=== PATIENT | female | born 1970 | race Caucasian/White ===

== ENCOUNTER 2016-09-02 20:49 | Emergency (ER) | payer MEDICAID ==
[2016-09-02 21:21] VITALS: BP 142/92
[2016-09-02] MEDS ORDERED: HYDROmorphone 1 MG/ML Syringe IM ONE (21:59)
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
== END 2016-09-02 22:32 | disposition home or self-care (01) ==
LOC: JP.ED 20:49
DX: G89.29 Other chronic pain (principal); M25.511 Pain in right shoulder; F17.210 Nicotine dependence, cigarettes, uncomplicated; E03.9 Hypothyroidism, unspecified; E78.00 Pure hypercholesterolemia, unspecified; K21.9 Gastro-esophageal reflux disease without esophagitis; M54.9 Dorsalgia, unspecified; M19.90 Unspecified osteoarthritis, unspecified site; Z79.899 Other long term (current) drug therapy; Z90.89 Acquired absence of other organs; Z88.5 Allergy status to narcotic agent; Z88.8 Allergy status to other drugs, medicaments and biological substances; Z91.048 Other nonmedicinal substance allergy status
CPT/HCPCS: 96372; 99283; J1170

== ENCOUNTER 2016-09-04 11:45 | Emergency (ER) | payer MEDICAID ==
[2016-09-04 12:11] VITALS: BP 175/113
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
[2016-09-04] MEDS ORDERED: Ketorolac 60 MG/2 ML SDV IM ONE (13:18)
--- NOTE | 2016-09-06 12:40 | CR ---
Right shoulder There is normal alignment of the glenohumeral as well as AC joints. There is joint space loss of the shoulder. There are hypertrophic changes at the AC joint. The soft tissues are unremarkable. Impression: 1. No acute findings.
== END 2016-09-04 13:37 | disposition home or self-care (01) ==
LOC: JP.ED 11:45
DX: G89.29 Other chronic pain (principal); M25.511 Pain in right shoulder; E78.00 Pure hypercholesterolemia, unspecified; K21.9 Gastro-esophageal reflux disease without esophagitis; E03.9 Hypothyroidism, unspecified; F41.9 Anxiety disorder, unspecified; G43.909 Migraine, unspecified, not intractable, without status migrainosus; F32.9 Major depressive disorder, single episode, unspecified; F17.210 Nicotine dependence, cigarettes, uncomplicated; Z88.5 Allergy status to narcotic agent; Z88.8 Allergy status to other drugs, medicaments and biological substances; Z79.899 Other long term (current) drug therapy; Z88.1 Allergy status to other antibiotic agents
CPT/HCPCS: 73030; 96372; 99284; J1885

== ENCOUNTER 2017-01-20 09:08 | Day surgery (SDC) | payer MEDICAID ==
[2017-01-20] MEDS ORDERED: Dextrose 5%-Lactated Ringers 1,000 ML IV SCH ×2 (09:45)
[2017-01-20] MEDS ORDERED: Midazolam 1 MG/ML 2 ML SDV ONE (11:20)
[2017-01-20] MEDS ORDERED: fentaNYL 100 MCG/2 ML SDV ONE (11:20)
[2017-01-20] MEDS ORDERED: Propofol 200 MG/20 ML SDV ONE ×2 (11:20→13:02)
[2017-01-20 14:37] VITALS: BP 119/72
--- NOTE | 2017-01-25 08:41 | ANES ---
DATE OF SERVICE: 01/20/2017 ADDENDUM: I did give her 400 mg total of propofol for the case. Zeus Hartman CRNA /[id number]
--- NOTE | 2017-01-28 14:48 | OR ---
DATE OF PROCEDURE: 01/20/2017 PREOPERATIVE DIAGNOSIS: Rectal bleeding. POSTOPERATIVE DIAGNOSES: 1. Rectal bleeding secondary to excoriated mixed hemorrhoids with associated rectal prolapse. 2. Limited left colonic diverticulosis. PROCEDURE: Flexible colonoscopy. ANESTHESIA: IV sedation. INDICATION FOR PROCEDURE: This is a 46-year-old female presenting with some recent rectal bleeding. The plan is to proceed with colonoscopy with biopsies and/or polypectomy as indicated. Potential risks including bleeding and perforation were discussed, and the patient wishes to proceed. DETAILS OF PROCEDURE: The patient was taken to the operating room and then placed in a left lateral decubitus position. IV sedation was administered, after which the initial digital rectal exam was unremarkable. The patient noted have some degree of rectal prolapse present as one passed the scope into the rectum, retroflexion revealed excoriated mixed hemorrhoids. These were quite irritated with likely being consistent with some bleeding recently. The scope was then eventually passed through the cecum. No additional abnormalities were noted other than some uncomplicated left colonic diverticulosis. No areas of blood or bleeding involving the anal canal. The prep was quite good with there only being a small amount of liquid and some scattered solid stool present. The scope was then withdrawn. The above findings were reconfirmed, and the procedure was then concluded. Should the patient have continued ongoing bleeding, I do not think a specific treatment will be required. She would be best treated by means of a stapled proctopexy which would correct the degree of rectal prolapse and likely allow the hemorrhoids to not be significantly inflamed following that procedure. She is instructed to contact us on p.r.n. basis if the bleeding is significant and continued. Cordell Arteaga MD /[id number]
== END 2017-01-20 14:40 | disposition home or self-care (01) ==
LOC: JP.SDS 09:08
PROVIDERS: ATTEND Surgery
DX: K57.30 Diverticulosis of large intestine without perforation or abscess without bleeding (principal); K62.3 Rectal prolapse; K64.9 Unspecified hemorrhoids
CPT/HCPCS: 45378; J2704; J7042; J2250; J3010

== ENCOUNTER 2017-06-09 16:13 | Emergency (ER) | payer MEDICAID, OTHER ==
[2017-06-09 16:26] VITALS: BP 170/98
[2017-06-09] MEDS ORDERED: Ketorolac 60 MG/2 ML SDV IM ONE (17:26)
[2017-06-09] MEDS ORDERED: Ondansetron 4 MG Tab.DIS PO ONE (17:26)
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
== END 2017-06-09 18:36 | disposition home or self-care (01) ==
LOC: JP.ED 16:13
DX: S13.9XXA Sprain of joints and ligaments of unspecified parts of neck, initial encounter (principal); F17.210 Nicotine dependence, cigarettes, uncomplicated; E78.00 Pure hypercholesterolemia, unspecified; K21.9 Gastro-esophageal reflux disease without esophagitis; E03.9 Hypothyroidism, unspecified; Z79.899 Other long term (current) drug therapy; Z88.1 Allergy status to other antibiotic agents; Z88.8 Allergy status to other drugs, medicaments and biological substances; Z88.5 Allergy status to narcotic agent; Z91.048 Other nonmedicinal substance allergy status; V89.2XXA Person injured in unspecified motor-vehicle accident, traffic, initial encounter; Y92.481 Parking lot as the place of occurrence of the external cause
CPT/HCPCS: 72125; 96372; 99284; A9270; J1885

== ENCOUNTER 2018-08-04 01:46 | Emergency (ER) | payer MEDICAID ==
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
[2018-08-04 02:13] VITALS: BP 151/78
== END 2018-08-04 02:25 | disposition home or self-care (01) ==
LOC: JP.ED 01:46
DX: N30.90 Cystitis, unspecified without hematuria (principal); Z88.8 Allergy status to other drugs, medicaments and biological substances; Z88.1 Allergy status to other antibiotic agents; Z88.5 Allergy status to narcotic agent; Z79.899 Other long term (current) drug therapy
CPT/HCPCS: 87086; 99283

== ENCOUNTER 2019-05-02 14:27 | Emergency (ER) | payer MEDICAID ==
[2019-05-02 14:51] VITALS: BP 125/76; PULSE 90
[2019-05-02] MEDS ORDERED: methylPREDNISolone Sodium Succinate 125 MG/2 ML SDV IVPUSH ONE (15:01)
[2019-05-02] MEDS ORDERED: Sodium Chloride 0.9% 10 ML Syringe FLUSH PRN (15:01)
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
[2019-05-02] MEDS ORDERED: Albuterol 0.083% 2.5 MG/3 ML Neb Soln NEB ONE (15:02)
[2019-05-02] MEDS ORDERED: Sodium Chloride 0.9% 1,000 ML IV SCH (15:15)
--- NOTE | 2019-05-02 15:36 | CRLCR ---
INDICATION: Shortness of breath. TECHNIQUE: Two views chest. FINDINGS: Heart size normal. Lungs clear without infiltrate or consolidation. Old fractures of right upper posterior ribs. Chest otherwise unremarkable. Dictated by José Miguel Burger MD @ May 02 2019 3:33PM Signed by Dr. José Miguel Burger @ May 02 2019 3:35PM
== END 2019-05-02 17:47 | disposition home or self-care (01) ==
LOC: JP.ED 14:27
DX: J98.01 Acute bronchospasm (principal); J40 Bronchitis, not specified as acute or chronic; F17.210 Nicotine dependence, cigarettes, uncomplicated; K21.9 Gastro-esophageal reflux disease without esophagitis; E78.00 Pure hypercholesterolemia, unspecified; F41.9 Anxiety disorder, unspecified; F32.9 Major depressive disorder, single episode, unspecified; Z79.899 Other long term (current) drug therapy; Z88.8 Allergy status to other drugs, medicaments and biological substances; Z88.1 Allergy status to other antibiotic agents; Z91.09 Other allergy status, other than to drugs and biological substances
CPT/HCPCS: 36415; 71046; 80053; 85025; 87804; 94640; 96374; 99285; J2930

== ENCOUNTER 2019-12-07 07:57 | Day surgery (SDC) | payer MEDICAID ==
[2019-12-07] MEDS ORDERED: Dextrose 5%-Lactated Ringers 1,000 ML IV SCH (08:10)
[2019-12-07] MEDS ORDERED: Propofol 200 MG/20 ML SDV ONE (09:05)
[2019-12-07] MEDS ORDERED: fentaNYL 100 MCG/2 ML SDV ONE (09:06)
[2019-12-07] MEDS ORDERED: Midazolam 1 MG/ML 2 ML SDV ONE (09:06)
[2019-12-07] MEDS ORDERED: Ondansetron 4 MG/2 ML SDV ONE (10:00)
[2019-12-07 11:18] VITALS: BP 128/79; PULSE 66
--- NOTE | 2019-12-13 14:51 | OR ---
DATE OF PROCEDURE: 12/07/2019 SURGEON: Cordell Arteaga MD PREOPERATIVE DIAGNOSIS: History of rectal bleeding. POSTOPERATIVE DIAGNOSIS: History of rectal bleeding, likely secondary to excoriated hemorrhoids. OPERATIVE PROCEDURE: Flexible colonoscopy. ANESTHESIA: IV sedation. INDICATIONS FOR PROCEDURE: A 49-year-old female, presenting with recent episodes of some rectal bleeding. She has not had it now for several days, but prior to that had some episodes of fairly active bright red blood occurring generally after bowel movements. The plan is to proceed with a flexible colonoscopy with biopsies and/or polypectomy as indicated, and if an obvious source of bleeding is seen, we might consider hemorrhoid banding. Potential risks of the procedure including bleeding and perforation were discussed, and the patient wishes to proceed. DETAILS OF PROCEDURE: The patient was taken to the operating room, placed in a left lateral decubitus position. IV sedation was administered, after which the initial digital rectal exam was performed was unremarkable. Colonoscope was then passed into the rectum. Retroflexion revealed some excoriated hemorrhoidal columns without active bleeding. Scope was eventually passed to the cecum. The prep was fair. There was quite a bit of liquid stool present, but probably 90% of the mucosal surfaces were well seen. There was no blood or bleeding or obvious mucosal abnormalities, apart from that. The scope was then withdrawn. The above findings were reconfirmed, and the procedure was then concluded. Plan will be to have the patient follow up with [facility] in 1 month for bariatric followup. She will be discussing possible panniculectomy at that time as well. The patient will be instructed that, if she develops significant recurrent bleeding, she should promptly get ahold of this and set up an appointment for possible in-clinic hemorrhoid banding. Cordell Arteaga MD /[id number]
== END 2019-12-07 11:21 | disposition home or self-care (01) ==
LOC: JP.SDS 07:57
PROVIDERS: ATTEND Surgery
DX: K64.8 Other hemorrhoids (principal); K62.5 Hemorrhage of anus and rectum; G47.33 Obstructive sleep apnea (adult) (pediatric)
CPT/HCPCS: 45378; J2250; J2405; J2704; J3010; J7121

== ENCOUNTER 2020-02-06 06:08 | Day surgery (SDC) | payer MEDICARE, MEDICAID ==
[2020-02-06] MEDS ORDERED: Nozin Nasal Sanitizer NASBOTH ONE (06:15)
[2020-02-06] MEDS ORDERED: Bupivacaine 0.5% 50 ML MDV ONE (06:43)
[2020-02-06] MEDS ORDERED: Lactated Ringers 1,000 ML IV SCH (07:00)
[2020-02-06] MEDS ORDERED: Propofol 200 MG/20 ML SDV ONE ×4 (07:15→09:27)
[2020-02-06] MEDS ORDERED: fentaNYL 100 MCG/2 ML SDV ONE (07:15)
[2020-02-06] MEDS ORDERED: Midazolam 1 MG/ML 2 ML SDV ONE ×2 (07:15→07:43)
[2020-02-06] MEDS ORDERED: Bupivacaine 0.5% 30 ML SDV ONE (07:16)
[2020-02-06] MEDS ORDERED: Clindamycin Phosphate 900 MG in Sodium Chloride 0.9% 100 ML IV ONE (07:30)
[2020-02-06] MEDS ORDERED: Lactated Ringers 1,000 ML ONE (09:28)
[2020-02-06] MEDS ORDERED: fentaNYL 100 MCG/2 ML SDV IVPUSH ONE (10:01)
[2020-02-06] MEDS ORDERED: HYDROmorphone 2 MG Tab PO ONE (10:33)
[2020-02-06 11:13] VITALS: BP 133/96; PULSE 56
--- NOTE | 2020-02-11 17:05 | OR ---
DATE OF PROCEDURE: 02/06/2020 SURGEON: Eloy Cobb MD PREOPERATIVE DIAGNOSIS: Recurrent right rotator cuff tear, large to massive. POSTOPERATIVE DIAGNOSES: 1. Recurrent right rotator cuff tear, large with retraction. 2. Chronic long head of biceps rupture. PROCEDURES: Arthroscopy, right shoulder with minor debridement of biceps and superior labrum, and open rotator cuff repair. ANESTHESIA: Interscalene block with sedation. INDICATIONS: Lucy is a 49-year-old female with a history of previous large right rotator cuff tear who unfortunately sustained a recurrent tear. Most recent MRI shows significant retraction and some atrophy and fatty replacement. 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 Discussed treatment options with her including attempt at revision repair, possibly with the addition of collagen matrix augmentation, capsular reconstruction, or reverse total shoulder. Given her age and activity level, it is thought that an attempt at repair is warranted in order to prevent the long-term morbidities associated with the reverse total shoulder. Risks, benefits, potential complications of options were discussed. DESCRIPTION OF PROCEDURE: After adequate anesthesia was obtained, the patient was placed in the lateral decubitus position and secured with a rose bag positioner. Right shoulder and arm were then prepped and draped in a sterile fashion. Ten pounds of traction was placed in the shoulder traction unit. A standard posterior portal was established and the glenohumeral joint was inspected. This revealed some mild scuffing of the articular surface of the glenoid and minimal changes of the humeral head. Evidence of chronic rupture of the long head of the biceps at its attachment was noted with some fraying of the superior labrum and a small nubbin of the biceps tendon still present. Subscapularis was intact. Anterior portal was established in the labrum and small portion of the remaining biceps tendon was debrided. Undersurface of the rotator cuff showed a complete tear with retraction. The scope was then removed and placed into the subacromial space. Lateral portal was established. The level of the acromioplasty was evaluated and found to be adequate. Some overgrowth of soft tissue was debrided with a combination of the shaver and the SERFAS radiofrequency ablation wand. The bursa was cleared for visualization. The edge of the rotator cuff tendon was identified at approximately the level of the mid-humeral head. A grasper was placed through the lateral portal and used to evaluate the ability to mobilize the tendon. The tendon showed more retraction posteriorly in the infraspinatus than the supraspinous, and the supraspinatus could be mobilized out to the footprint adequately. Posterior tendon was more tight. An elevator was used to free adhesions from the superior surface of the cuff as well as between the cuff and capsule and labrum intra-articularly. This allowed further mobilization and the infraspinatus could be brought out just past the edge of the articular surface. Due to the recurrent nature of the tear and retraction and the desire to get as firm a fixation as possible, a decision was made to proceed with a mini open repair. The shoulder was drained and the scope was withdrawn. The lateral portal was extended, taken down through the subcutaneous tissues and the deltoid was then divided in line with its fibers. Self-retaining retractor was placed. Deltoid was taken off the acromion for a very short distance anterior and posterior to allow better visualization. The edge of the cuff could be identified. Jermain clamp was used to grasp the edge and mobilize it out laterally and assess position. Some further releases were performed, particularly posteriorly. A FiberWire suture was placed in the anterior aspect in the supraspinatus in a locking fashion and used for mobilization and traction. The superior surface of the tuberosity was then decorticated with a rongeur. Supraspinatus and anterior portion of the tear could be mobilized out to a good area of the footprint. As noted previously, the infraspinatus was able to be mobilized out just beyond the edge of the articular surface, but could not be mobilized out to the lateral aspect of the footprint. Three Mitek Healix anchors were then placed, one anterior in the footprint of the tuberosity, one just posterior to this just off the articular surface, and the third most posterior again just barely off the articular surface. All sutures were then brought up through the tendon in a mattress fashion. With the arm slightly abducted, sutures were then tied down. An additional FiberWire suture was placed in the infraspinatus in the leading edge again in a locking fashion. The set of sutures from this locking stitch and the initially placed locking traction stitch were then secured to the tuberosity laterally utilizing a Mitek Healix knotless anchor. The 2 sets of suture for the anterior anchor were likewise secured with a knotless anchor laterally and then the final set of sutures posteriorly were also secured with a knotless anchor more posteriorly. This resulted in a double- row repair with the suture bridge as well as anchoring of the leading edge of the tear with locking sutures to the tuberosity. This resulted in a fairly robust repair, and as there was no significant gap to the tuberosity and the tendon available to the repair resulted in adequate suture purchase, a decision was made not to proceed with the collagen augmentation. The wound was irrigated. Deltoid was repaired in a [id number] fashion with 0 Vicryl. Skin was closed with 2-0 Vicryl and running 3-0 Monocryl. The additional portals were closed with 3-0 Monocryl. Steri-Strips were applied. Sterile dressing was then placed. The patient tolerated procedure very well. There were no complications. Taken from the operating room in stable condition. Eloy Cobb MD /[id number] MTDD
== END 2020-02-06 11:55 | disposition home or self-care (01) ==
LOC: JP.SDS 06:08
PROVIDERS: ATTEND Specialist
DX: M75.121 Complete rotator cuff tear or rupture of right shoulder, not specified as traumatic (principal); S46.111A Strain of muscle, fascia and tendon of long head of biceps, right arm, initial encounter; F41.9 Anxiety disorder, unspecified; F32.9 Major depressive disorder, single episode, unspecified; E11.9 Type 2 diabetes mellitus without complications; E03.9 Hypothyroidism, unspecified; E66.09 Other obesity due to excess calories; G47.33 Obstructive sleep apnea (adult) (pediatric); F17.210 Nicotine dependence, cigarettes, uncomplicated; Z79.899 Other long term (current) drug therapy; Z79.82 Long term (current) use of aspirin; Z88.5 Allergy status to narcotic agent; Z98.890 Other specified postprocedural states; Z88.8 Allergy status to other drugs, medicaments and biological substances; Z88.1 Allergy status to other antibiotic agents; Z91.048 Other nonmedicinal substance allergy status; Z68.28 Body mass index [BMI] 28.0-28.9, adult
CPT/HCPCS: 23412; 29823; 29827; 81025; A9270; C1713; J2250; J2704; J3010; J3490; J7050; J7120

== ENCOUNTER 2020-03-30 20:58 | Emergency (ER) | payer MEDICARE, MEDICAID ==
[2020-03-30 21:24] VITALS: BP 124/85; PULSE 71
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
[2020-03-30] MEDS ORDERED: Cyclobenzaprine 10 MG Tab PO ONE (21:47)
[2020-03-30] MEDS ORDERED: HYDROmorphone 0.5 MG/0.5 ML Syringe IM ONE (21:48)
== END 2020-03-30 22:31 | disposition home or self-care (01) ==
LOC: JP.ED 20:58
DX: M54.2 Cervicalgia (principal); K21.9 Gastro-esophageal reflux disease without esophagitis; E03.9 Hypothyroidism, unspecified; M19.90 Unspecified osteoarthritis, unspecified site; F41.9 Anxiety disorder, unspecified; F32.9 Major depressive disorder, single episode, unspecified; F17.210 Nicotine dependence, cigarettes, uncomplicated; E66.9 Obesity, unspecified; Z68.28 Body mass index [BMI] 28.0-28.9, adult; Z88.8 Allergy status to other drugs, medicaments and biological substances; Z91.048 Other nonmedicinal substance allergy status; Z88.1 Allergy status to other antibiotic agents; Z88.5 Allergy status to narcotic agent; Z79.899 Other long term (current) drug therapy
CPT/HCPCS: 96372; 99283; A9270; J1170

== ENCOUNTER 2020-04-16 06:50 | Day surgery (SDC) | payer MEDICARE, MEDICAID ==
[2020-04-16] MEDS ORDERED: Nozin Nasal Sanitizer NASBOTH ONE (07:15)
[2020-04-16] MEDS ORDERED: Lactated Ringers 1,000 ML IV SCH (07:30)
[2020-04-16] MEDS ORDERED: fentaNYL 100 MCG/2 ML SDV ONE (08:36)
[2020-04-16] MEDS ORDERED: Midazolam 1 MG/ML 2 ML SDV ONE ×3 (08:36→11:42)
[2020-04-16] MEDS ORDERED: Propofol 200 MG/20 ML SDV ONE ×6 (08:36→11:35)
[2020-04-16] MEDS ORDERED: Bupivacaine 0.5% 30 ML SDV ONE (10:14)
[2020-04-16] MEDS ORDERED: Lactated Ringers 1,000 ML ONE (10:14)
[2020-04-16] MEDS ORDERED: Morphine 2 MG/ML SYRINGE IVPUSH ONE (12:40)
[2020-04-16 14:40] VITALS: BP 120/88; PULSE 64
--- NOTE | 2020-04-28 14:24 | OR ---
DATE OF PROCEDURE: 04/16/2020 SURGEON: Eloy Cobb MD PREOPERATIVE DIAGNOSIS: Recurrent massive tear, right rotator cuff. POSTOPERATIVE DIAGNOSIS: Recurrent massive tear, right rotator cuff. PROCEDURE: Right rotator cuff revision repair including augmentation with ArthroFlex collagen patch. PUNCH HAND: SURENDRA Hampton ANESTHESIA: Interscalene block with sedation. INDICATIONS: Lucy is a 49-year-old female with a history of previous revision rotator cuff repair. She had been doing relatively well with the last revision, however, had a minor trauma jerking the arm at approximately 2 months out from her last surgery resulting in recurrent tear. I had a long discussion regarding another attempt at repair, use of collagen patch augmentation, tendon transfers, and capsular reconstruction up to and including reverse total shoulder arthroplasty. Given her age and the fact that this had failed traumatically within a short period of her last repair, it was felt that another attempt at open repair was worthwhile. Risks, benefits, and potential complications of all the procedures were discussed. DESCRIPTION OF PROCEDURE: After adequate anesthesia was obtained, the patient was placed in a modified beach-chair position. Right shoulder and arm were prepped and draped in a sterile fashion. Previous incision was utilized, carried down through the subcutaneous tissues, and a self-retaining retractor was placed. Deltoid was split in line with its fibers and a portion of the deltoid was taken off the acromion anteriorly and posteriorly. Self-retaining retractor was placed in the deltoid. Care was taken not to extend this down to the level of the axillary nerve. Previously placed anchors were identified with the sutures still in place, and the tendon retracted indicating failure of the sutures in the tendon. The end of the tendon could be grasped. There were no significant adhesions noted. The cuff could be mobilized converging the margins somewhat. An Orthocord suture was placed into the anterior leaflet and the posterior leaflet in a locking stitch and used for mobilization and traction. This was done with the assistance of physician special event assistant. The edge of the cuff could be mobilized out just to the medial edge of the footprint. An ArthroFlex collagen graft was utilized, and this was cut to fit over the footprint and to extend over the edge of the [place] tendon by several millimeters. Additional Healix suture anchors were placed along the medial edge of the footprint right at the margin of the articular cartilage after decorticating the footprint. All 4 limbs of each of the suture anchors were brought up through the edge of the rotator cuff. Once all sutures were placed and using the traction sutures, the tendon was mobilized out to the edge of the footprint. Collagen patch was then placed. The sutures from the suture anchor were passed through the collagen patch several millimeters from its edge. Sutures were then tied down over the patch incorporating the underlying tendon. Once this was done, the traction sutures were also passed through the graft, directing the suture in the anterior leaflet more posterior and the suture in the posterior leaflet more anterior. The edge of the ArthroFlex graft was then sewn into the tendon with 0 Vicryl suture in a running fashion along its free edge. Two additional suture anchors were placed through the graft out over its lateral edge and tied down. Two sets of the sutures from the posterior repair and 2 sets from the anterior repair were then crisscrossed and placed through knotless anchors just off the edge of the tuberosity creating a suture bridge incorporating a portion of the [place] tendon and the graft. The remaining sutures were cut, and the anterior, posterior, and lateral edges of the graft were sewn down with 0 Vicryl. Once this was done, it provided complete coverage of the footprint with moderate tension on the cuff. Wound was irrigated. Deltoid was repaired back in a [id number] fashion with 0 Vicryl. Skin was closed with 2-0 Vicryl and a running 3-0 Monocryl. Steri-Strips were applied. Sterile dressing was then placed. The arm was placed into an abduction sling. The patient tolerated the procedure very well. There were no complications. She was taken from the operating room in stable condition. Eloy Cobb MD /[id number] RAMIREZ
== END 2020-04-16 14:35 | disposition home or self-care (01) ==
LOC: JP.SDS 06:50
PROVIDERS: ATTEND Specialist
DX: M75.101 Unspecified rotator cuff tear or rupture of right shoulder, not specified as traumatic (principal); G47.33 Obstructive sleep apnea (adult) (pediatric); F17.200 Nicotine dependence, unspecified, uncomplicated
CPT/HCPCS: 23412; 36415; 80053; 85027; A9270; C1713; J2250; J2270; J2704; J3010; J3370; J3490; J7050; J7120

== ENCOUNTER 2020-09-25 12:15 | Emergency (ER) | payer MEDICARE, MEDICAID ==
[2020-09-25 13:59] VITALS: BP 162/99; PULSE 66
[2020-09-25] MEDS ORDERED: Ketorolac 60 MG/2 ML SDV IM ONE (14:27)
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
--- NOTE | 2020-09-25 15:26 | CR ---
Knee 3V Rt CLINICAL HISTORY: 3 view FINDINGS: No acute fracture or dislocation is noted. There are no osseous lesions. There is some mild periarticular patellar spurring. There is narrowing of the lateral patellofemoral joint. Impression: [id number] osteoarthritic change
== END 2020-09-25 16:00 | disposition home or self-care (01) ==
LOC: JP.ED 12:15
DX: S39.012A Strain of muscle, fascia and tendon of lower back, initial encounter (principal); S80.01XA Contusion of right knee, initial encounter; K21.9 Gastro-esophageal reflux disease without esophagitis; E03.9 Hypothyroidism, unspecified; E66.9 Obesity, unspecified; Z68.30 Body mass index [BMI] 30.0-30.9, adult; Z79.82 Long term (current) use of aspirin; Z79.899 Other long term (current) drug therapy; Z88.0 Allergy status to penicillin; Z88.8 Allergy status to other drugs, medicaments and biological substances; Z88.5 Allergy status to narcotic agent; W01.0XXA Fall on same level from slipping, tripping and stumbling without subsequent striking against object, initial encounter
CPT/HCPCS: 73562-26-RT; 73562-RT; 96372; 99283; J1885

== ENCOUNTER 2021-01-14 05:33 | Inpatient (IN) | payer MEDICARE, MEDICAID ==
[2021-01-14] MEDS ORDERED: Lactated Ringers 1,000 ML IV SCH (06:00)
[2021-01-14] MEDS ORDERED: Nozin Nasal Sanitizer NASBOTH ONE (06:32)
[2021-01-14] MEDS ORDERED: Povidone-Iodine 10% Soln 118.25 ML Bottle ONE (06:58)
[2021-01-14] MEDS ORDERED: Clindamycin Phosphate 900 MG in Sodium Chloride 0.9% 100 ML IV ONE (07:30)
[2021-01-14] MEDS ORDERED: Ondansetron 4 MG/2 ML SDV ONE (07:32)
[2021-01-14] MEDS ORDERED: Glycopyrrolate 0.2 MG/ML 5 ML MDV ONE (07:32)
[2021-01-14] MEDS ORDERED: Succinylcholine 200 MG/10 ML MDV ONE (07:32)
[2021-01-14] MEDS ORDERED: Rocuronium 50 MG/5 ML Vial ONE (07:32)
[2021-01-14] MEDS ORDERED: Dexamethasone 4 MG/ML SDV ONE (07:32)
[2021-01-14] MEDS ORDERED: Neostigmine Methylsulfate 1 MG/ML 5 ML Syringe ONE (07:32)
[2021-01-14] MEDS ORDERED: Propofol 200 MG/20 ML SDV ONE (07:32)
[2021-01-14] MEDS ORDERED: fentaNYL 250 MCG/5 ML SDV ONE ×2 (07:33→08:30)
[2021-01-14] MEDS ORDERED: Midazolam 1 MG/ML 2 ML SDV ONE (07:36)
[2021-01-14] MEDS ORDERED: Lactated Ringers 1,000 ML ONE (09:33)
[2021-01-14] MEDS ORDERED: Ondansetron 4 MG/2 ML SDV IVPUSH PRN ×2 (10:27→10:37)
[2021-01-14] MEDS ORDERED: Acetaminophen 325 MG Tab PO PRN (10:27)
[2021-01-14] MEDS ORDERED: Methocarbamol 500 MG Tab PO PRN (10:32)
[2021-01-14] MEDS ORDERED: diphenhydrAMINE 50 MG/ML SDV IVPUSH PRN (10:37)
[2021-01-14] MEDS ORDERED: Naloxone 0.4 MG/ML SDV IVPUSH PRN (10:37)
[2021-01-14] MEDS ORDERED: diphenhydrAMINE 25 MG Cap PO PRN (10:37)
[2021-01-14] MEDS ORDERED: Benzocaine/Cetylpyridinium/Menthol Lozenge MUCMEM PRN (10:45)
[2021-01-14] MEDS ORDERED: LORazepam 0.5 MG Tab PO SCH (10:45)
[2021-01-14] MEDS ORDERED: HYDROmorphone/Normal Saline 15 MG/30 ML PCA IV PRN ×2 (10:45→18:01)
[2021-01-14] MEDS ORDERED: hydrOXYzine HCl 25 MG Tab PO PRN (10:50)
[2021-01-14] MEDS ORDERED: Acetaminophen/oxyCODONE 325-10 MG Tab PO PRN (10:54)
--- NOTE | 2021-01-14 11:02 | CR ---
Shoulder 1V Rt CLINICAL HISTORY: Reverse TSA FINDINGS: Patient is status post recent placement of a reverse arthroplasty in the right shoulder. Components appear well seated.
[2021-01-14] MEDS: Sodium Chloride 0.9% 1,000 ML IV SCH ×2 (11:54→20:11)
[2021-01-14] MEDS: DULoxetine 30 MG Cap PO SCH (13:13)
[2021-01-14] MEDS: Levothyroxine 112 MCG Tab PO SCH (13:13)
[2021-01-14] MEDS: Methadone Oral Concentrate 10 MG/1 ML U/D Cup PO SCH (13:13)
[2021-01-14] MEDS: Pantoprazole 40 MG Tab.CR PO SCH (13:13)
[2021-01-14] MEDS: Docusate Sodium 100 MG Cap PO SCH ×2 (13:13→20:32)
[2021-01-14] MEDS: Cetirizine 10 MG Tab PO SCH ×2 (13:13→13:21)
[2021-01-14] MEDS: lamoTRIgine 100 MG Tab PO SCH (13:14)
[2021-01-14] MEDS: Nicotine 21 MG/24 Hr Patch TRDERM SCH (13:19)
[2021-01-14] MEDS: Clotrimazole 1% Crm 30 GM Tube TOP SCH (20:12)
[2021-01-14] MEDS: Baclofen 10 MG Tab PO SCH (20:14)
[2021-01-14] MEDS: Nozin Nasal Sanitizer NASBOTH SCH (20:32)
[2021-01-14] MEDS: Aspirin 325 MG Tab.EC PO SCH (20:34)
[2021-01-14] MEDS: Magnesium Oxide 400 MG Tab PO PRN (20:34)
[2021-01-15] MEDS: Baclofen 10 MG Tab PO SCH (01:41)
[2021-01-15] MEDS: Sodium Chloride 0.9% 1,000 ML IV SCH ×2 (04:15→12:31)
[2021-01-15] MEDS: Levothyroxine 112 MCG Tab PO SCH (08:07)
[2021-01-15] MEDS: Docusate Sodium 100 MG Cap PO SCH ×2 (08:07→21:10)
[2021-01-15] MEDS: Pantoprazole 40 MG Tab.CR PO SCH (08:07)
[2021-01-15] MEDS: Nozin Nasal Sanitizer NASBOTH SCH ×2 (08:08→21:11)
[2021-01-15] MEDS: Cetirizine 10 MG Tab PO SCH (08:08)
[2021-01-15] MEDS: DULoxetine 30 MG Cap PO SCH (08:08)
[2021-01-15] MEDS: lamoTRIgine 100 MG Tab PO SCH (08:09)
[2021-01-15] MEDS: Clotrimazole 1% Crm 30 GM Tube TOP SCH ×2 (08:10→21:11)
[2021-01-15] MEDS: Nicotine 21 MG/24 Hr Patch TRDERM SCH (08:14)
[2021-01-15] MEDS: Aspirin 325 MG Tab.EC PO SCH ×2 (08:22→21:10)
--- NOTE | 2021-01-15 08:28 | PCM.SURGPN ---
- General Info Date of Service: 01/15/21 Date of Surgery/Procedure: 01/14/21 POD#: 1 Post-Op Diagnosis: failed previous rotator cuff repairs Admission Diagnosis/Problem: Shoulder joint pain (s/p R reverse TSA ) Functional Status: Reports: Tolerating Diet, Ambulating, Urinating - Review of Systems General: Denies: Fever, Fatigue, Chills Pulmonary: Reports: Cough. Denies: Shortness of Breath, Sputum, Wheezing Cardiovascular: Denies: Chest Pain, Palpitations Gastrointestinal: Denies: Nausea, Vomiting Musculoskeletal: Reports: Neck Pain, Shoulder Pain (right shoulder ), Arm Pain (right ) Skin: Reports: No Symptoms Neurological: Reports: No Symptoms - Patient Data Vitals - Most Recent: Last Vital Signs Temp 97.1 F 01/15/21 06:47 Pulse 57 L 01/15/21 06:47 Resp 16 01/15/21 06:47 BP 162/93 H 01/15/21 06:47 Pulse Ox 94 L 01/15/21 06:47 Weight - Most Recent: 165 lb 12.8 oz I&O - Last 24 Hours: Intake & Output 01/14/21 01/15/21 01/15/21 22:59 06:59 14:59 Output Total 920 1160 Balance -920 -1160 Lab Results Last 24 Hrs: Laboratory Results - last 24 hr 01/15/21 Range/Units 05:20 WBC 7.6 (4.5-11.0) K/uL RBC 3.76 (3.30-5.50) M/uL Hgb 12.6 (12.0-15.0) g/dL Hct 39.5 (36.0-48.0) % MCV 105 H (80-98) fL MCH 34 H (27-31) pg MCHC 32 (32-36) % Plt Count 159 (150-400) K/uL Med Orders - Current: Current Medications Acetaminophen (Acetaminophen 325 Mg Tab) 650 mg PO Q4H PRN PRN Reason: Pain/Fever Aspirin (Aspirin 325 Mg Tab.Ec) 325 mg PO BID [facility] Last Admin: 01/15/21 08:22 Dose: 325 mg Documented by: Baclofen (Baclofen 10 Mg Tab) 5 mg PO BEDTIME [facility] Last Admin: 01/15/21 01:41 Dose: 5 mg Documented by: Bandage/Support Products (Nozin Nasal Machine Setter And Repairer) 1 applic NASBOTH BID [facility] Stop: 01/20/21 21:01 Last Admin: 01/15/21 08:08 Dose: 1 applic Documented by: Benzocaine/Menthol (Benzocaine/Cetylpyridinium/Menthol Lozenge) 1 lozenge MUCMEM ASDIRECTED PRN PRN Reason: SORE THROAT Cetirizine HCl (Cetirizine 10 Mg Tab) 10 mg PO DAILY [facility] Last Admin: 01/15/21 08:08 Dose: Not Given Documented by: Clotrimazole (Clotrimazole 1% Crm 30 Gm Tube) 0 gm TOP BID [facility] Last Admin: 01/15/21 08:10 Dose: Not Given Documented by: Diphenhydramine HCl (Diphenhydramine 50 Mg/Ml Sdv) 25 mg IVPUSH Q6H PRN PRN Reason: Itching Diphenhydramine HCl (Diphenhydramine 25 Mg Cap) 25 mg PO Q6H PRN PRN Reason: Itching Docusate Sodium (Docusate Sodium 100 Mg Cap) 100 mg PO BID [facility] Last Admin: 01/15/21 08:07 Dose: 100 mg Documented by: Duloxetine HCl (Duloxetine 30 Mg Cap) 120 mg PO DAILY [facility] Last Admin: 01/15/21 08:08 Dose: 120 mg Documented by: Hydromorphone HCl (Hydromorphone/Normal Saline 15 Mg/30 Ml Base Loader) 0 mg IV ASDIRECTED PRN; Protocol PRN Reason: Pain Hydroxyzine HCl (Hydroxyzine Hcl 25 Mg Tab) 25 mg PO Q6H PRN PRN Reason: anxiety/itching Last Admin: 01/15/21 01:42 Dose: 25 mg Documented by: Sodium Chloride (Normal Saline) 1,000 mls @ 125 mls/hr IV ASDIRECTED [facility] Last Admin: 01/15/21 04:15 Dose: 125 mls/hr Documented by: Clindamycin Phosphate 600 mg/ (Sodium Chloride) 54 mls @ 150 mls/hr IV Q8H [facility] Stop: 01/15/21 09:22 Last Admin: 01/15/21 08:18 Dose: 150 mls/hr Documented by: Lamotrigine (Lamotrigine 100 Mg Tab) 200 mg PO DAILY [facility] Last Admin: 01/15/21 08:09 Dose: 200 mg Documented by: Levothyroxine Sodium (Levothyroxine 112 Mcg Tab) 112 mcg PO ACBREAKFAST [facility] Last Admin: 01/15/21 08:07 Dose: 112 mcg Documented by: Magnesium Oxide (Magnesium Oxide 400 Mg Tab) 200 mg PO BEDTIME PRN PRN Reason: Sleep Last Admin: 01/14/21 20:34 Dose: 200 mg Documented by: Methadone HCl (Methadone Oral Concentrate 10 Mg/1 Ml U/D Cup) 161 mg PO DAILY [facility] Last Admin: 01/14/21 13:13 Dose: 161 mg Documented by: Methocarbamol (Methocarbamol 500 Mg Tab) 500 mg PO TID PRN PRN Reason: Spasms Naloxone HCl (Naloxone 0.4 Mg/Ml Sdv) 0.04 mg IVPUSH Q3M PRN PRN Reason: Respiratory Depression Nicotine (Nicotine 21 Mg/24 Hr Patch) 21 mg TRDERM DAILY [facility] Last Admin: 01/15/21 08:14 Dose: 21 mg Documented by: Ondansetron HCl (Ondansetron 4 Mg/2 Ml Sdv) 4 mg IVPUSH Q4H PRN PRN Reason: Nausea/Vomiting Oxycodone/Acetaminophen (Acetaminophen/Oxycodone 325-10 Mg Tab) 1 tab PO Q8H PRN PRN Reason: Pain Pantoprazole Sodium (Pantoprazole 40 Mg Tab.Cr) 40 mg PO ACBREAKFAST [facility] Last Admin: 01/15/21 08:07 Dose: 40 mg Documented by: Discontinued Medications Bandage/Support Products (Nozin Nasal Machine Setter And Repairer) 1 applic NASBOTH ONETIME ONE Stop: 01/14/21 06:33 Last Admin: 01/14/21 06:40 Dose: 1 applic Documented by: Dexamethasone (Dexamethasone 4 Mg/Ml Sdv) Confirm Administered Dose 4 mg .ROUTE .STK-MED ONE Stop: 01/14/21 07:33 Fentanyl (Fentanyl 250 Mcg/5 Ml Sdv) Confirm Administered Dose 250 mcg .ROUTE .STK-MED ONE Stop: 01/14/21 07:34 Fentanyl (Fentanyl 250 Mcg/5 Ml Sdv) Confirm Administered Dose 250 mcg .ROUTE .S TK-MED ONE Stop: 01/14/21 08:31 Glycopyrrolate (Glycopyrrolate 0.2 Mg/Ml 5 Ml Mdv) Confirm Administered Dose 1 mg .ROUTE .STK-MED ONE Stop: 01/14/21 07:33 Hydromorphone HCl (Hydromorphone/Normal Saline 15 Mg/30 Ml Base Loader) 0 mg IV ASDIRECTED PRN; Protocol PRN Reason: Pain Last Admin: 01/14/21 11:55 Dose: 15 mg Documented by: Clindamycin Phosphate 900 mg/ (Sodium Chloride) 106 mls @ 200 mls/hr IV ONETIME ONE Stop: 01/14/21 08:01 Last Admin: 01/14/21 07:46 Dose: 200 mls/hr Documented by: Lactated Ringer's (Ringers, Lactated) 1,000 mls @ 75 mls/hr IV ASDIRECTED [facility] Last Admin: 01/14/21 06:08 Dose: 75 mls/hr Documented by: Lactated Ringer's (Ringers, Lactated) Confirm Administered Dose 1,000 mls @ as directed .ROUTE .STK-MED ONE Stop: 01/14/21 09:34 Midazolam HCl (Midazolam 1 Mg/Ml 2 Ml Sdv) Confirm Administered Dose 2 mg .ROUTE .STK-MED ONE Stop: 01/14/21 07:37 Neostigmine Methylsulfate (Neostigmine Methylsulfate 1 Mg/Ml 5 Ml Syringe) Confirm Administered Dose 5 mg .ROUTE .STK-MED ONE Stop: 01/14/21 07:33 Ondansetron HCl (Ondansetron 4 Mg/2 Ml Sdv) Confirm Administered Dose 4 mg .ROUTE .STK-MED ONE Stop: 01/14/21 07:33 Povidone Iodine (Povidone-Iodine 10% Soln 118.25 Ml Bottle) Confirm Administered Dose 1 ml .ROUTE .STK-MED ONE Stop: 01/14/21 06:59 Propofol (Propofol 200 Mg/20 Ml Sdv) Confirm Administered Dose 200 mg .ROUTE .STK-MED ONE Stop: 01/14/21 07:33 Rocuronium [place] (Rocuronium 50 Mg/5 Ml Vial) Confirm Administered Dose 50 mg .ROUTE .STK-MED ONE Stop: 01/14/21 07:33 Succinylcholine Chloride (Succinylcholine 200 Mg/10 Ml Mdv) Confirm Administered Dose 200 mg .ROUTE .STK-MED ONE Stop: 01/14/21 07:33 - Exam Wound/Incisions: Dressing Dry and Intact, Drainage (JOSIAS drain, total of 270 mL in past 24 hours. No drainage on dressing. ) General: Alert, Oriented, Mild Distress Extremities: Normal Capillary Refill, Arm Pain (right ), Limited Range of Motion (due to pain at right shoulder. Appropriate motion of elbow, wrist, and digits ) Skin: Dry, Intact Neurological: No New Focal Deficit Psy/Mental Status: Alert, Normal Affect Sepsis Event Note - Evaluation Sepsis Screening Result: No Definite Risk - Focused Exam Vital Signs: Vital Signs Temp Pulse Resp BP Pulse Ox 01/15/21 06:47 97.1 F 57 L 16 162/93 H 94 L 01/15/21 04:22 96.8 F L 66 16 150/87 H 98 01/15/21 01:45 62 18 120/76 98 01/15/21 00:56 94 L 01/14/21 22:36 97.7 F 88 16 115/69 95 - Problem List & Annotations (1) Status post reverse total arthroplasty of right shoulder SNOMED Code(s): 39998281066309056, 93941072973074339 Code(s): Z96.611 - PRESENCE OF RIGHT ARTIFICIAL SHOULDER JOINT Status: Acute Current Visit: Yes - Problem List Review Problem List Initiated/Reviewed/Updated: Yes - My Orders Last 24 Hours: Active Orders 24 hr Category Date Time Status Patient Status [ADT] Routine ADT 01/14/21 10:28 Active Ambulate [RC] QID Care 01/14/21 10:28 Active Antiembolic Devices [RC] .Routine Care 01/14/21 10:28 Active Communication Order [RC] Per Unit Routine Care 01/14/21 10:39 Active Head of Bed Elevation [RC] ASDIRECTED Care 01/14/21 10:28 Active Intake and Output [RC] QSHIFT Care 01/14/21 10:28 Active May Shower [RC] ASDIRECTED Care 01/14/21 10:28 Active Neurovascular Check [RC] Q4H Care 01/14/21 10:28 Active Notify Provider Vital Signs [RC] ASDIRECTED Care 01/14/21 10:27 Active Oxygen Therapy [RC] PRN Care 01/14/21 10:28 Active GAS METER INSTALLER Record [RC] Q4H Care 01/14/21 10:39 Active Pneumonia Education [RC] UPON Care 01/14/21 10:28 Active RT Incentive Spirometry [RC] Q1HWA Care 01/14/21 10:28 Active Up to Chair [RC] QID Care 01/14/21 10:28 Active VTE/DVT Education [RC] Click to Edit Care 01/14/21 10:28 Active Vital Signs [RC] PER UNIT ROUTINE Care 01/14/21 10:39 Active Wound Care [RC] Q12H Care 01/14/21 10:28 Active Consult to Case Management/Studio Operations Manager [CONS] Cons 01/14/21 10:28 Active Routine OT Evaluation and Treatment [CONS] Routine Cons 01/14/21 10:27 Active PT Evaluation and Treatment [CONS] Routine Cons 01/14/21 10:28 Active Regular Diet [DIET] Diet 01/14/21 Lunch Active Acetaminophen [TylenoL] Med 01/14/21 10:27 Active 650 mg PO Q4H PRN Acetaminophen/oxyCODONE [Percocet 325-10 MG] Med 01/14/21 10:54 Active 1 tab PO Q8H PRN Aspirin [Ecotrin] Med 01/14/21 21:00 Active 325 mg PO BID Baclofen [Lioresal] Med 01/14/21 21:00 Active 5 mg PO BEDTIME Benzocaine/Cetylpyrd/Menthol [Cepacol Sore Throat] Med 01/14/21 10:45 Active 1 lozenge MUCMEM ASDIRECTED PRN Cetirizine [ZyrTEC] Med 01/14/21 13:00 Active 10 mg PO DAILY Clindamycin Phosphate [Cleocin] 600 mg Med 01/14/21 17:00 Active Sodium Chloride 0.9% [Normal Saline] 50 ml IV Q8H Clotrimazole [Lotrimin AF 1% Crm] Med 01/14/21 21:00 Active 0 gm TOP BID DULoxetine [Cymbalta] Med 01/14/21 13:00 Active 120 mg PO DAILY Docusate Sodium [Colace] Med 01/14/21 13:00 Active 100 mg PO BID HYDROmorphone/Normal Saline [Dilaudid GAS METER INSTALLER 15 MG in NS Med 01/14/21 18:01 Act jayashree 30 ML] 0 mg IV ASDIRECTED PRN Levothyroxine Med 01/14/21 13:00 Active 112 mcg PO ACBREAKFAST Magnesium Oxide Med 01/14/21 12:25 Active 200 mg PO BEDTIME PRN Methadone [methadone Intensol U/D] Med 01/14/21 13:00 Active 161 mg PO DAILY Naloxone [Narcan] Med 01/14/21 10:37 Active 0.04 mg IVPUSH Q3M PRN Nicotine [Habitrol] Med 01/14/21 13:00 Active 21 mg TRDERM DAILY Nozin [ Nasal Machine Setter And Repairer] Med 01/14/21 21:00 Active 1 applic NASBOTH BID Ondansetron [Zofran] Med 01/14/21 10:27 Active 4 mg IVPUSH Q4H PRN Pantoprazole [ProTONIX] Med 01/14/21 13:00 Active 40 mg PO ACBREAKFAST Sodium Chloride 0.9% [Normal Saline] 1,000 ml Med 01/14/21 10:30 Active IV ASDIRECTED diphenhydrAMINE [Benadryl] Med 01/14/21 10:37 Active 25 mg IVPUSH Q6H PRN diphenhydrAMINE [Benadryl] Med 01/14/21 10:37 Active 25 mg PO Q6H PRN hydrOXYzine HCL [Atarax] Med 01/14/21 10:50 Active 25 mg PO Q6H PRN lamoTRIgine Med 01/14/21 13:00 Active 200 mg PO DAILY methocarbamoL [Robaxin] Med 01/14/21 10:32 Active 500 mg PO TID PRN DVT/VTE Prophylaxis Reflex [OM.PC] Routine Oth 01/14/21 10:28 Ordered Ice Therapy [OM.PC] Per Unit Routine Oth 01/14/21 10:28 Ordered Medication Continuation Instructions [OM.PC] Per Unit Oth 01/14/21 10:28 Ordered Routine Oral Care [OM.PC] Routine Oth 01/14/21 10:28 Ordered Pulse Oximetry Continuous Monitoring [OM.PC] Routine Oth 01/14/21 10:39 Ordered Sequential Compression Device [OM.PC] Routine Oth 01/14/21 10:28 Ordered Resuscitation Status Routine Resus Stat 01/14/21 10:27 Ordered Medication Orders Acetaminophen (Acetaminophen 325 Mg Tab) 650 mg PO Q4H PRN PRN Reason: Pain/Fever Aspirin (Aspirin 325 Mg Tab.Ec) 325 mg PO BID [facility] Last Admin: 01/15/21 08:22 Dose: 325 mg Documented by: Admin: 01/14/21 20:34 Dose: Not Given Documented by: BRENDA Baclofen (Baclofen 10 Mg Tab) 5 mg PO BEDTIME [facility] Last Admin: 01/15/21 01:41 Dose: 5 mg Documented by: Admin: 01/14/21 20:14 Dose: Not Given Documented by: BRENDA Bandage/Support Products (Nozin Nasal Machine Setter And Repairer) 1 applic NASBOTH BID [facility] Stop: 01/20/21 21:01 Last Admin: 01/15/21 08:08 Dose: 1 applic Documented by: Admin: 01/14/21 20:32 Dose: 1 applic Documented by: BRENDA Benzocaine/Menthol (Benzocaine/Cetylpyridinium/Menthol Lozenge) 1 lozenge MUCMEM ASDIRECTED PRN PRN Reason: SORE THROAT Cetirizine HCl (Cetirizine 10 Mg Tab) 10 mg PO DAILY [facility] Last Admin: 01/15/21 08:08 Dose: Not Given Documented by: Admin: 01/14/21 13:21 Dose: Not Given Documented by: BENITO Clotrimazole (Clotrimazole 1% Crm 30 Gm Tube) 0 gm TOP BID [facility] Last Admin: 01/15/21 08:10 Dose: Not Given Documented by: Admin: 01/14/21 20:12 Dose: Not Given Documented by: BRENDA Diphenhydramine HCl (Diphenhydramine 50 Mg/Ml Sdv) 25 mg IVPUSH Q6H PRN PRN Reason: Itching Diphenhydramine HCl (Diphenhydramine 25 Mg Cap) 25 mg PO Q6H PRN PRN Reason: Itching Docusate Sodium (Docusate Sodium 100 Mg Cap) 100 mg PO BID [facility] Last Admin: 01/15/21 08:07 Dose: 100 mg Documented by: Admin: 01/14/21 20:32 Dose: 100 mg Documented by: Admin: 01/14/21 13:13 Dose: 100 mg Documented by: BENITO Duloxetine HCl (Duloxetine 30 Mg Cap) 120 mg PO DAILY [facility] Last Admin: 01/15/21 08:08 Dose: 120 mg Documented by: Admin: 01/14/21 13:13 Dose: 120 mg Documented by: BENITO Hydromorphone HCl (Hydromorphone/Normal Saline 15 Mg/30 Ml Base Loader) 0 mg IV ASDIRECTED PRN; Protocol PRN Reason: Pain Hydroxyzine HCl (Hydroxyzine Hcl 25 Mg Tab) 25 mg PO Q6H PRN PRN Reason: anxiety/itching Last Admin: 01/15/21 01:42 Dose: 25 mg Documented by: BRENDA Sodium Chloride (Normal Saline) 1,000 mls @ 125 mls/hr IV ASDIRECTED [facility] Last Admin: 01/15/21 04:15 Dose: 125 mls/hr Documented by: Infusion: 01/15/21 04:11 Dose: 125 mls/hr Documented by: Admin: 01/14/21 20:11 Dose: 125 mls/hr Documented by: Infusion: 01/14/21 19:54 Dose: 125 mls/hr Documented by: Admin: 01/14/21 11:54 Dose: 125 mls/hr Documented by: BENITO Clindamycin Phosphate 600 mg/ (Sodium Chloride) 54 mls @ 150 mls/hr IV Q8H [facility] Stop: 01/15/21 09:22 Last Admin: 01/15/21 08:18 Dose: 150 mls/hr Documented by: Admin: 01/15/21 01:42 Dose: 150 mls/hr Documented by: Admin: 01/14/21 16:41 Dose: 150 mls/hr Documented by: BENITO Lamotrigine (Lamotrigine 100 Mg Tab) 200 mg PO DAILY [facility] Last Admin: 01/15/21 08:09 Dose: 200 mg Documented by: Admin: 01/14/21 13:14 Dose: 200 mg Documented by: BENITO Levothyroxine Sodium (Levothyroxine 112 Mcg Tab) 112 mcg PO [facility]AKFAST [facility] Last Admin: 01/15/21 08:07 Dose: 112 mcg Documented by: Admin: 01/14/21 13:13 Dose: 112 mcg Documented by: BENITO Magnesium Oxide (Magnesium Oxide 400 Mg Tab) 200 mg PO BEDTIME PRN PRN Reason: Sleep Last Admin: 01/14/21 20:34 Dose: 200 mg Documented by: BRENDA Methadone HCl (Methadone Oral Concentrate 10 Mg/1 Ml U/D Cup) 161 mg PO DAILY [facility] Last Admin: 01/14/21 13:13 Dose: 161 mg Documented by: BENITO Methocarbamol (Methocarbamol 500 Mg Tab) 500 mg PO TID PRN PRN Reason: Spasms Naloxone HCl (Naloxone 0.4 Mg/Ml Sdv) 0.04 mg IVPUSH Q3M PRN PRN Reason: Respiratory Depression Nicotine (Nicotine 21 Mg/24 Hr Patch) 21 mg TRDERM DAILY [facility] Last Admin: 01/15/21 08:14 Dose: 21 mg Documented by: Admin: 01/14/21 13:19 Dose: Not Given Documented by: BENITO Ondansetron HCl (Ondansetron 4 Mg/2 Ml Sdv) 4 mg IVPUSH Q4H PRN PRN Reason: Nausea/Vomiting Oxycodone/Acetaminophen (Acetaminophen/Oxycodone 325-10 Mg Tab) 1 tab PO Q8H PRN PRN Reason: Pain Pantoprazole Sodium (Pantoprazole 40 Mg Tab.Cr) 40 mg PO [facility]AKFAST [facility] Last Admin: 01/15/21 08:07 Dose: 40 mg Documented by: Admin: 01/14/21 13:13 Dose: 40 mg Documented by: BENITO - Assessment Assessment (Free Text/Narrative):: Patient is a 50-year-old female, status post right reverse total shoulder arthroplasty, postop day #1. Patient tolerated surgery well with no complications. No acute events overnight. POD#1 HgB declined to 12.6. Patient remains hemodynamically stable with vitals in acceptable limits. Diastolic pressures have been slightly elevated in the 90s, likely attributed to postoperative pain. JOSIAS drain output was 250 mL yesterday evening. 20 mL output overnight for a total of 270 mL since surgery. Patient is not opioid-rossy and has a high pain tolerance. GAS METER INSTALLER Dilaudid pump was utilized overnight. Patient reports block wore off around 2 AM and has had tremendous pain since then. Complains of a constant throbbing in shoulder and muscle cramps around shoulder. Reports less than 3 hours of sleep last night from the pain. Patient worked with physical therapy yesterday on [facility] to elbow, wrist, and digits. Will continue with therapy services today and progress motion of shoulder as tolerated. Patient requires inpatient status at this time to obtain adequate pain control and wean to oral medications prior to discharge. Patient also requiring further therapy services to progress functional abilities of right upper extremity. Exam: Right radial pulse, 3+. Capillary refill <3 seconds. Sensation intact. Active and appropriate motion at elbow and wrist. Crm Marketing Analyst strength of right slightly diminished. Patient unagreeable to shoulder motion this morning due to pain. Right JOSIAS drain in place. Dressing on right shoulder is dry and intact. Surrounding skin without erythema nor ecchymosis. Unable to assess temperature as cool packs are in place on right shoulder. Plan: * Patient to continue with PT and OT services daily while in the hospital. * Patient to continue with Dilaudid GAS METER INSTALLER this morning through AM PT session; goal to transition to oral medications thereafter. * Baclofen increased from 5mg daily to 5mg BID PRN for muscle spasms. * 325 mg Aspirin BID for DVT/VTE prophylaxis. * Anticipate JOSIAS drain removal if output continues to decline. Anticipate dressing change by orthopedic provider on POD#2. * Anticipate discharge to home when patient is medically stable, pain controlled with PO medications, and functional abilities with RUE improve. May benefit from home health services at time of discharge.
[2021-01-15] MEDS ORDERED: Baclofen 10 MG Tab PO PRN (08:51)
[2021-01-15] MEDS: Methadone Oral Concentrate 10 MG/1 ML U/D Cup PO SCH (08:53)
[2021-01-15] MEDS: Ketorolac 30 MG/ML SDV IVPUSH SCH ×2 (13:35→21:10)
[2021-01-15] MEDS: HYDROmorphone 2 MG Tab PO PRN ×3 (13:35→21:51)
[2021-01-15] MEDS: HYDROmorphone 1 MG/ML Syringe IVPUSH PRN ×2 (15:29→23:26)
[2021-01-15] MEDS ORDERED: Polyethylene Glycol 3350 Powder 17 GM Packet PO PRN (17:06)
[2021-01-15] MEDS ORDERED: Polyethylene Glycol 3350 Powder 17 GM Packet PO ONE (17:55)
[2021-01-15] MEDS ORDERED: Bisacodyl 10 MG Supp RECTAL ONE (22:00)
[2021-01-15] MEDS: Magnesium Oxide 400 MG Tab PO PRN (22:01)
[2021-01-16] MEDS: HYDROmorphone 2 MG Tab PO PRN ×3 (02:37→12:23)
[2021-01-16] MEDS: Ketorolac 30 MG/ML SDV IVPUSH SCH (04:43)
[2021-01-16 07:31] VITALS: BP 134/90; PULSE 66
[2021-01-16] MEDS: Pantoprazole 40 MG Tab.CR PO SCH (07:42)
[2021-01-16] MEDS: Levothyroxine 112 MCG Tab PO SCH (07:42)
[2021-01-16] MEDS ORDERED: Glycerin 2.1 GM Supp RECTAL ONE (08:00)
--- NOTE | 2021-01-16 08:04 | PCM.DCSUM1 ---
Discharge Summary - Hospital Course HPI Initial Comments: Patient is a 50 y/o female with history of multiple failed right rotator cuffs. Patient suffered from weakness of the right upper extremity, impacting ability to complete ADLs and quality of life. Patient elected to undergo a right reverse total shoulder arthroplasty. Surgery went well with no complications. No acute events during hospitalization. Hospitalization prolonged to allow for adequate pain control with PO medications prior to discharge home. Diagnosis: Stroke: No Modified [place] Scale: No Symptoms at All Modified Mini Scale Score: 0 - Discharge Data Discharge Date: 01/16/21 Discharge Disposition: Home, W Home Health Agency 06 Condition: Good - Referral to Home Health Date of Face to Face Encounter: 01/16/21 Reason for Homebound Status: motivated to go home, pain controlled with PO medications, is medically stable at this time. Will have support of HEAVY LINE TECHNICIAN at home. Primary Care Physician: SURENDRA Martinez Skilled Need: physical therapy, occupational therapy - Discharge Diagnosis/Problem(s) (1) Status post reverse total arthroplasty of right shoulder SNOMED Code(s): [id number], [id number] ICD Code: Z96.611 - PRESENCE OF RIGHT ARTIFICIAL SHOULDER JOINT Status: Acute Current Visit: Yes - Patient Summary/Data Operative Procedure(s) Performed: right reverse total shoulder arthroplasty Consults: Consultations 01/14/21 10:27 OT Evaluation and Treatment [CONS] Routine Please Evaluate and Treat. OT Reason for Consult: ADL's This query below is only for informational purposes and is not editable. 01/14/21 10:28 Consult to Case Management/Well Head Pumper [CONS] Routine Comment: Physician Instructions: Service(s) to be Consulted: Case Management Reason for Consult: Plan for Discharge Special Instructions: anticipate d/c to home, home health services PT Evaluation and Treatment [CONS] Routine Please Evaluate and Treat. PT Reason for Consult: Post op Ortho Surgery Special Instructions: s/p R reverse TSA; okay to initiate ROM with shoulder as tolerated. Continue with AROM to elbow and wrist. This query below is only for informational purposes and is not editable. Hospital Course: Patient is a 50 y/o female, status post right reverse total shoulder arthroplasty, DOS: 01/14/21. Patient tolerated surgery well with no complications. Patient had no acute events during hospitalization. Remained hemodynamically stable throughout stay. Did have intermittent hypertension, likely attributed to pain. Blood pressures have improved over POD#2. Patient POD#1 HgB declined to 12.6. Patient has been asymptomatic with this. Denied lightheadedness, dizziness, vision changes, nor fatigue. Also denied subjective fevers, chills, shortness of breath, dyspnea on exertion, nor chest pain. Does endorse cough, not productive. JOSIAS Drain did have 250 mL output the afternoon and evening of surgery. POD#1 output of 40 mL. JOSIAS drain pulled on POD#2 as output declined to <20 mL. Dressing changed on POD#2 with JOSIAS drain removal. Patient is not opioid naive and does have a high pain tolerance, so a Dilaudid HEAVY LINE TECHNICIAN pump was utilized following surgery. Patient transitioned to oral Dilaudid with IV available for breakthrough pain on POD#1. By POD#2, pain well controlled with just PO medications. Denied nausea or emesis. Tolerated regular diet well. Did have constipation throughout stay; utilized scheduled stool softeners, and prn miralax and prn suppositories. By POD#2, had a bowel movement. Patient participated in PT and OT services daily. Demonstrates appropriate motion of elbow and wrist. Guarded with shoulder motions from pain, but tolerating passive flexion to about 45 degrees. Able to complete ADLs with assistance. By POD#2, patients pain was well controlled with oral medications, she was medically stable, and expressed readiness to go home. Does have a HEAVY LINE TECHNICIAN at home to assist around the house. Will complete home health PT for shoulder. Exam: Right radial pulse, 3+. Capillary refill <3 seconds. Sensation to right upper extremity intact. Demonstrates active and appropriate motion of elbow, wrist, and digits. Metals Analyst strength of right slightly diminished. Guarded with shoulder motions from pain, but is able to passively flex to 45 degrees. Incision is healing well, steristrips intact above with dried drainage. No surrounding erythema, nor active drainage. Recent cool pack on shoulder so unable to accurately assess temperature. Ecchymosis present on anterior shoulder extending into breast. Modest diffuse swelling of right shoulder into right elbow. No significant swelling of forearm, wrist, nor digits. - Patient Instructions Diet: Usual Diet as Tolerated Activity: Apply Ice, No Strenuous Activities (no lifting with right arm ), Rest and Relax Today Driving: Do Not Drive (while on opioid pain medications ) Showering/Bathing: Shower in AM Wound/Incision Care: Keep Operative Site/Wound Site Clean and Dry, Change Dressing Daily Notify Provider of: Fever, Increased Pain, Swelling and Redness, Drainage - Discharge Plan *PRESCRIPTION DRUG MONITORING PROGRAM REVIEWED*: Yes *COPY OF PRESCRIPTION DRUG MONITORING REPORT IN PATIENT DORI: Not Applicable Prescriptions/Med Rec: Aspirin 325 mg PO BID #60 tablet HYDROmorphone [Dilaudid] 2 mg PO Q6HR PRN #28 tab PRN Reason: Pain Home Medications: Home Meds DULoxetine [Cymbalta] 120 mg PO DAILY 02/07/14 [History] lamoTRIgine [Lamictal] 200 mg PO DAILY 02/07/14 [History] Acetaminophen [Tylenol Extra Strength] 500 mg PO Q6H PRN 06/05/14 [History] Methadone HCl [Methadone] 161 mg PO DAILY 06/05/14 [History] Vitamin B Complex [B Complex] 1 tab PO DAILY 07/11/14 [History] Omeprazole Magnesium 40 mg PO DAILY 08/01/15 [History] Papaya [Papaya Enzyme] 1 tab PO ASDIRECTED PRN 08/01/15 [History] Cyanocobalamin (Vitamin B12) [Vitamin B12] 1,000 mcg IJ .QMONTH 10/22/15 [History] Magnesium 250 mg PO BEDTIME PRN 11/28/15 [History] hydrOXYzine Pamoate [Vistaril] 25 mg PO Q6H PRN 09/07/16 [History] Calcium Citrate/Magnesium/D3 [Calcium Citrate Chewable Wafer] 500 mg PO BID 11/24/18 [History] Aspirin/Acetaminophen/Caffeine [Migraine Relief Caplet] 1 tab PO Q6H PRN 05/28/20 [History] Biotin 5,000 mcg PO DAILY 05/28/20 [History] Clobetasol Propionate [Temovate 0.05% Oint] 1 applic TOP BID 05/28/20 [History] Clotrimazole [Clotrimazole 1%] 1 applic TOP BID 05/28/20 [History] Doxepin HCl [Zonalon] 1 applic TOP BEDTIME 05/28/20 [History] Halobetasol Propionate [Ultravate] 1 applic TOP BID 05/28/20 [History] LORazepam [Lorazepam] 0.5 mg PO ASDIRECTED PRN 05/28/20 [History] Mupirocin Oint [Bactroban Oint] 1 applic TOP TID PRN 05/28/20 [History] Nicotine [Nicoderm CQ] 21 mg TOP DAILY 05/28/20 [History] Pediatric Multivitamin No.101 [Children's Multivitamin] 1 tab PO DAILY 05/28/20 [History] Thiamine HCl 100 mg PO DAILY 05/28/20 [History] Vitamin B Complex/Folic Acid [Vitamin B-100 Complex] 100 mg PO DAILY 05/28/20 [History] methocarbamoL [Methocarbamol] 500 mg PO TID PRN 05/28/20 [History] metroNIDAZOLE [Metrogel-Vaginal] 1 applic VAG DAILY 05/28/20 [History] ondansetron HCL [Zofran] 4 mg PO Q8H PRN 05/28/20 [History] Zinc 30 mg PO DAILY 08/14/20 [History] Levothyroxine 112 mcg PO ACBREAKFAST 09/25/20 [History] Baclofen 5 mg PO BEDTIME 01/09/21 [History] Celecoxib [CeleBREX] 200 mg PO BID 01/09/21 [History] Cetirizine HCl 10 mg PO DAILY 01/09/21 [History] Diclofenac Sodium [Voltaren 1% Gel] 1 applic TOP QID 01/09/21 [History] Ergocalciferol (Vitamin D2) [Vitamin D2] 50,000 unit PO .MONTUEWEDTHURFRI 01/09/21 [History] Ergocalciferol (Vitamin D2) [Vitamin D2] 100,000 unit PO .SATSUN 01/09/21 [History] Ferrous Fumarate/Vitamin C [Vitron-C] 1 tab PO DAILY 01/09/21 [History] Tolnaftate [Antifungal Cream] 1 applic TOP BID 01/09/21 [History] Triamcinolone Acetonide [Triamcinolone Acetonide 0.1% Crm] 1 applic TOP BID 01/09/21 [History] oxyCODONE HCl/Acetaminophen [Endocet 10-325 mg Tablet] 1 each PO Q8H PRN 01/14/21 [History] Aspirin 325 mg PO BID #60 tablet 01/16/21 [Rx] HYDROmorphone [Dilaudid] 2 mg PO Q6HR PRN #28 tab 01/16/21 [Rx] Oxygen Therapy Mode: Room Air Patient Handouts: Reverse Total Shoulder Replacement, Care After, Preventing Problems After Surgery, How to Prevent Constipation After Surgery Referrals: Eloy Cobb MD [Physician] - 01/29/21 1:30 pm (Please arrive 15 minutes early to register for yoour appointment.) - Discharge Summary/Plan Comment DC Time >30 min.: Yes (drain removal, reviewing limitations with RUE, discussing smoking cessation) Total # of Minutes for Discharge Time: 30 Discharge Summary/Plan Comment: * Prescription sent to pharmacy for pain: 2 mg Dilaudid PO q6 hrs prn for pain. Educated patient this is a 1 week supply and early refills will not be granted. Encouraged to continue with daily stool softener while on this medication. * Patient to continue with BID aspirin for DVT/VTE prophylaxis. Educated on warning signs of DVT/VTE and return parameters. * Patient able to remove dressing and shower. Let water run over steri strips. Do not submerge incision in water/bath. Do not need to place new dressing unless there is serosangious drainage or steristrips cause irritation. Reviewed SSI warning signs and encouraged to contact clinic with any concerns regarding incision healing. * Discussed smoking cessation and importance in promoting healing. Patient expressed understanding, but is not interested in further cessation information at this time. * Patient will participate in outpatient PT; able to work on AROM to shoulder as tolerated. Avoid hyperextension. Avoid any lifting greater than 2 lbs with right arm. * Follow up with patient in 2 weeks as scheduled. Encouraged to contact clinic if concerns arise prior to scheduled apt. - General Info Date of Service: 01/16/21 Admission Dx/Problem (Free Text: right reverse total shoulder arthroplasty Functional Status: Reports: Pain Controlled, Tolerating Diet, Ambulating - Review of Systems General: Denies: Fever, Fatigue, Chills HEENT: Denies: Visual Changes Pulmonary: Reports: Cough. Denies: Shortness of Breath, Sputum, Wheezing Gastrointestinal: Reports: Constipation. Denies: Nausea, Vomiting Musculoskeletal: Reports: Shoulder Pain (right ) Skin: Reports: Bruising Neurological: Reports: No Symptoms - Patient Data Vitals - Most Recent: Last Vital Signs Temp 97.8 F 01/16/21 07:28 Pulse 66 01/16/21 07:28 Resp 16 09/17/21 07:28 BP 134/90 01/16/21 07:28 Pulse Ox 96 01/16/21 07:28 Weight - Most Recent: 165 lb 12.813 oz I&O - Last 24 hours: Intake & Output 01/15/21 01/16/21 01/16/21 22:59 06:59 14:59 Intake Total 3954 600 Output Total 918 Balance 3036 600 Med Orders - Current: Current Medications Acetaminophen (Acetaminophen 325 Mg Tab) 650 mg PO Q4H PRN PRN Reason: Pain/Fever Aspirin (Aspirin 325 Mg Tab.Ec) 325 mg PO BID [facility] Last Admin: 01/15/21 21:10 Dose: 325 mg Documented by: Baclofen (Baclofen 10 Mg Tab) 5 mg PO Q12H PRN PRN Reason: Muscle Spasm - Painful Last Admin: 01/15/21 22:01 Dose: 5 mg Documented by: Bandage/Support Products (Nozin Nasal [employer] French Teacher) 1 applic NASBOTH BID [facility] Stop: 01/20/21 21:01 Last Admin: 01/15/21 21:11 Dose: 1 applic Documented by: Benzocaine/Menthol (Benzocaine/Cetylpyridinium/Menthol Lozenge) 1 lozenge MUCMEM ASDIRECTED PRN PRN Reason: SORE THROAT Cetirizine HCl (Cetirizine 10 Mg Tab) 10 mg PO DAILY [facility] Last Admin: 01/15/21 08:08 Dose: Not Given Documented by: Clotrimazole (Clotrimazole 1% Crm 30 Gm Tube) 0 gm TOP BID [facility] Last Admin: 01/15/21 21:11 Dose: Not Given Documented by: Diphenhydramine HCl (Diphenhydramine 50 Mg/Ml Sdv) 25 mg IVPUSH Q6H PRN PRN Reason: Itching Diphenhydramine HCl (Diphenhydramine 25 Mg Cap) 25 mg PO Q6H PRN PRN Reason: Itching Docusate Sodium (Docusate Sodium 100 Mg Cap) 100 mg PO BID [facility] Last Admin: 01/15/21 21:10 Dose: 100 mg Documented by: Duloxetine HCl (Duloxetine 30 Mg Cap) 120 mg PO DAILY [facility] Last Admin: 01/15/21 08:08 Dose: 120 mg Documented by: Glycerin (Glycerin 2.1 Gm Supp) 1 each RECTAL ONETIME ONE Stop: 01/16/21 07:52 Hydromorphone HCl (Hydromorphone 2 Mg Tab) 2 mg PO Q4H PRN PRN Reason: Pain (moderate 4-6) Last Admin: 01/16/21 07:41 Dose: 2 mg Documented by: Hydromorphone HCl (Hydromorphone 1 Mg/Ml Syringe) 1 mg IVPUSH Q1H PRN PRN Reason: Breakthrough Pain Last Admin: 01/15/21 23:26 Dose: 1 mg Documented by: Hydroxyzine HCl (Hydroxyzine Hcl 25 Mg Tab) 25 mg PO Q6H PRN PRN Reason: anxiety/itching Last Admin: 01/15/21 01:42 Dose: 25 mg Documented by: Lamotrigine (Lamotrigine 100 Mg Tab) 200 mg PO DAILY [facility] Last Admin: 01/15/21 08:09 Dose: 200 mg Documented by: Levothyroxine Sodium (Levothyroxine 112 Mcg Tab) 112 mcg PO ACBREAKFAST [facility] Last Admin: 01/16/21 07:42 Dose: 112 mcg Documented by: Magnesium Oxide (Magnesium Oxide 400 Mg Tab) 200 mg PO BEDTIME PRN PRN Reason: Sleep Last Admin: 01/15/21 22:01 Dose: 200 mg Documented by: Methadone HCl (Methadone Oral Concentrate 10 Mg/1 Ml U/D Cup) 161 mg PO DAILY [facility] Last Admin: 01/15/21 08:53 Dose: 161 mg Documented by: Methocarbamol (Methocarbamol 500 Mg Tab) 500 mg PO TID PRN PRN Reason: Spasms Last Admin: 01/16/21 04:43 Dose: 500 mg Documented by: Naloxone HCl (Naloxone 0.4 Mg/Ml Sdv) 0.04 mg IVPUSH Q3M PRN PRN Reason: Respiratory Depression Nicotine (Nicotine 21 Mg/24 Hr Patch) 21 mg TRDERM DAILY [facility] Last Admin: 01/15/21 08:14 Dose: 21 mg Documented by: Ondansetron HCl (Ondansetron 4 Mg/2 Ml Sdv) 4 mg IVPUSH Q4H PRN PRN Reason: Nausea/Vomiting Last Admin: 01/15/21 19:54 Dose: 4 mg Documented by: Oxycodone/Acetaminophen (Acetaminophen/Oxycodone 325-10 Mg Tab) 1 tab PO Q8H PRN PRN Reason: Pain Pantoprazole Sodium (Pantoprazole 40 Mg Tab.Cr) 40 mg PO ACBREAKFAST [facility] Last Admin: 01/16/21 07:42 Dose: 40 mg Documented by: Polyethylene Glycol (Polyethylene Glycol 3350 Powder 17 Gm Packet) 17 gm PO ONETIME PRN PRN Reason: Constipation Last Admin: 01/16/21 04:49 Dose: 17 gm Documented by: Discontinued Medications Baclofen (Baclofen 10 Mg Tab) 5 mg PO BEDTIME [facility] Last Admin: 01/15/21 01:41 Dose: 5 mg Documented by: Bandage/Support Products (Nozin Nasal [employer] Teacher) 1 applic NASBOTH ONETIME ONE Stop: 01/14/21 06:33 Last Admin: 01/14/21 06:40 Dose: 1 applic Documented by: Bisacodyl (Bisacodyl 10 Mg Supp) 10 mg RECTAL ONETIME ONE Stop: 01/15/21 22:01 Last Admin: 01/15/21 21:51 Dose: 10 mg Documented by: Dexamethasone (Dexamethasone 4 Mg/Ml Sdv) Confirm Administered Dose 4 mg .ROUTE .STK-MED ONE Stop: 01/14/21 07:33 Fentanyl (Fentanyl 250 Mcg/5 Ml Sdv) Confirm Administered Dose 250 mcg .ROUTE .STK-MED ONE Stop: 01/14/21 07:34 Fentanyl (Fentanyl 250 Mcg/5 Ml Sdv) Confirm Administered Dose 250 mcg .ROUTE .STK-MED ONE Stop: 01/14/21 08:31 Glycopyrrolate (Glycopyrrolate 0.2 Mg/Ml 5 Ml Mdv) Confirm Administered Dose 1 mg .ROUTE .STK-MED ONE Stop: 01/14/21 07:33 Hydromorphone HCl (Hydromorphone/Normal Saline 15 Mg/30 Ml Suggestion Clerk) 0 mg IV ASDIRECTED PRN; Protocol PRN Reason: Pain Last Admin: 01/14/21 11:55 Dose: 15 mg Documented by: Hydromorphone HCl (Hydromorphone/Normal Saline 15 Mg/30 Ml Suggestion Clerk) 0 mg IV ASDIRECTED PRN; Protocol PRN Reason: Pain Last Admin: 01/15/21 11:43 Dose: 15 mg Documented by: Clindamycin Phosphate 900 mg/ (Sodium Chloride) 106 mls @ 200 mls/hr IV ONETIME ONE Stop: 01/14/21 08:01 Last Admin: 01/14/21 07:46 Dose: 200 mls/hr Documented by: Lactated Ringer's (Ringers, Lactated) 1,000 mls @ 75 mls/hr IV ASDIRECTED [facility] Last Admin: 01/14/21 06:08 Dose: 75 mls/hr Documented by: Lactated Ringer's (Ringers, Lactated) Confirm Administered Dose 1,000 mls @ as directed .ROUTE .STK-MED ONE Stop: 01/14/21 09:34 Sodium Chloride (Normal Saline) 1,000 mls @ 125 mls/hr IV ASDIRECTED [facility] Last Admin: 01/15/21 12:31 Dose: 125 mls/hr Documented by: Clindamycin Phosphate 600 mg/ (Sodium Chloride) 54 mls @ 150 mls/hr IV Q8H [facility] Stop: 01/15/21 09:22 Last Admin: 01/15/21 08:18 Dose: 150 mls/hr Documented by: Ketorolac Tromethamine (Ketorolac 30 Mg/Ml Sdv) 30 mg IVPUSH Q8H [facility] Stop: 01/16/21 05:01 Last Admin: 01/16/21 04:43 Dose: 30 mg Documented by: Midazolam HCl (Midazolam 1 Mg/Ml 2 Ml Sdv) Confirm Administered Dose 2 mg .ROUTE .STK-MED ONE Stop: 01/14/21 07:37 Neostigmine Methylsulfate (Neostigmine Methylsulfate 1 Mg/Ml 5 Ml Syringe) Confirm Administered Dose 5 mg .ROUTE .STK-MED ONE Stop: 01/14/21 07:33 Ondansetron HCl (Ondansetron 4 Mg/2 Ml Sdv) Confirm Administered Dose 4 mg .ROUTE .STK-MED ONE Stop: 01/14/21 07:33 Polyethylene Glycol (Polyethylene Glycol 3350 Powder 17 Gm Packet) 17 gm PO ONETIME ONE Stop: 01/15/21 17:56 Last Admin: 01/15/21 18:20 Dose: 17 gm Documented by: Povidone Iodine (Povidone-Iodine 10% Soln 118.25 Ml Bottle) Confirm Administered Dose 1 ml .ROUTE .STK-MED ONE Stop: 01/14/21 06:59 Propofol (Propofol 200 Mg/20 Ml Sdv) Confirm Administered Dose 200 mg .ROUTE .STK-MED ONE Stop: 01/14/21 07:33 Rocuronium Plummer (Rocuronium 50 Mg/5 Ml Vial) Confirm Administered Dose 50 mg .ROUTE .STK-MED ONE Stop: 01/14/21 07:33 Succinylcholine Chloride (Succinylcholine 200 Mg/10 Ml Mdv) Confirm Administered Dose 200 mg .ROUTE .STK-MED ONE Stop: 01/14/21 07:33 - Exam General: Reports: Alert, Oriented, Cooperative, No Acute Distress Extremities: Normal Capillary Refill, Joint Swelling (right shoulder ), Arm Pain (right ), Limited Range of Motion Skin: Reports: Dry, Intact, Ecchymosis Wound/Incisions: Reports: Healing Well, Dressing Dry and Intact, No Drainage Psy/Mental Status: Reports: Alert, Normal Affect, Normal Mood
[2021-01-16] MEDS: lamoTRIgine 100 MG Tab PO SCH (08:33)
[2021-01-16] MEDS: DULoxetine 30 MG Cap PO SCH (08:33)
[2021-01-16] MEDS: Nozin Nasal Sanitizer NASBOTH SCH (08:34)
[2021-01-16] MEDS: Docusate Sodium 100 MG Cap PO SCH (08:34)
[2021-01-16] MEDS: Aspirin 325 MG Tab.EC PO SCH (08:34)
[2021-01-16] MEDS: Cetirizine 10 MG Tab PO SCH (08:34)
[2021-01-16] MEDS: Clotrimazole 1% Crm 30 GM Tube TOP SCH (08:35)
[2021-01-16] MEDS: Nicotine 21 MG/24 Hr Patch TRDERM SCH (08:36)
[2021-01-16] MEDS: Methadone Oral Concentrate 10 MG/1 ML U/D Cup PO SCH (09:16)
--- NOTE | 2021-02-02 18:27 | OR ---
DATE OF PROCEDURE: 01/14/2021 SURGEON: Eloy Cobb MD PREOPERATIVE DIAGNOSIS: Chronic right rotator cuff tear with rotator cuff arthropathy. POSTOPERATIVE DIAGNOSIS: Chronic right rotator cuff tear with rotator cuff arthropathy. PROCEDURE PERFORMED: Reverse right total shoulder arthroplasty using Christian trabecular metal components with a size 12 stem, 36 mm Glenosphere, and a +3 mm polyethylene. EDUCATIONAL ADVISOR: SURENDRA Fish ANESTHESIA: Interscalene block with general anesthesia. INDICATIONS: Lucy is a 50-year-old female with a history of multiple failed rotator cuff repairs. She has a massive, retracted, irreparable cuff tear with superior migration of the humeral head and now presents for reverse total shoulder arthroplasty. Risks, benefits, and potential complications were discussed at some length including the possibility of loosening of the glenoid component, need for revision, and limitations on weightbearing, lifting, etc. assistant professor of spanish services of physician design assistant are utilized during this case for skilled retraction, exposure, manipulation of the arm, and closure. DESCRIPTION OF PROCEDURE: After adequate anesthesia was obtained, the patient was placed in a modified beachchair position with all bony prominences well padded. The right shoulder and arm were prepped and draped in a sterile fashion. An anterior incision was made and carried down through the subcutaneous tissues, and hemostasis was obtained with electrocautery. The cephalic vein was identified, and the deltopectoral interval is developed, retracting the cephalic vein laterally with the deltoid. Subdeltoid scarring was released. The clavipectoral fascia was divided, and a self-retaining retractor was placed beneath the conjoined tendon and the deltoid. The subscapularis was divided and retracted medially. The capsule was divided off the inferior humeral neck, and the top few millimeters of the pectoralis major tendon were divided for better exposure. The arm was externally rotated, bringing the humeral head into the wound, and a Hohmann retractor was placed over the superior aspect. Massive full-thickness tear of the rotator cuff was present. A previous attempt at repair with collagen patch augmentation was identified with the collagen patch still firmly attached to the tuberosity; however, the cuff had failed to heal to the tuberosity or to the patch. The superior aspect of the humerus was debrided including removal of multiple suture anchors, some of which obstructed placement of guides for the humeral head resection. A rongeur was used to make a starting hole for the intramedullary awl, which was then placed down the canal. This was sequentially reamed to a size 12 stem. The reamer was left in place, and the humeral resection guide was placed, aligned, and secured to the proximal humerus. Intramedullary reamer was removed and the humerus then resected with an oscillating saw. The guide was removed. The metaphysis was then further reamed, and a trial stem was placed with excellent fit. The glenoid was then exposed. A retractor was placed over the anterior aspect of the glenoid, and the anterior glenoid labrum was resected. Resection carried out inferiorly and posteriorly, exposing the rim of the glenoid. A retractor was placed posteriorly, retracting the humeral head. Glenoid guide was positioned so that the inferior rim sat on the inferior edge of the glenoid and in the center on the AP axis. A guide pin was placed. A small reamer was placed over this for center hole, and the glenoid reamer was then placed, removing the articular cartilage. This was taken down to a very good base. A larger center hole drill was utilized. A trabecular metal baseplate was then tapped into position with excellent stability. Further fixation was obtained with 2 variable-angle locking screws. Both of these had excellent purchase. Locking caps were secured. The wound was irrigated, and the 36 mm glenosphere was then tapped into position onto the baseplate. Secure fixation was confirmed using a [place] elevator in an attempt to dislodge this. Attention was returned to the humerus. Trial reduction was done with a +3 polyethylene, which provided a very secure fit with no significant lift-off on external rotation. The trials were removed. The final trabecular metal stem was tapped into position. Trial reduction was done once again with a +3 polyethylene with very good tension and stability. The trial was removed, and the final polyethylene was secured onto the stem and reduced. The arm was thoroughly irrigated including a dilute Betadine irrigation solution, which was left in place for 2-1/2 minutes and then irrigated with pulse lavage. The subscapularis was not reattached. The deltopectoral interval was allowed to close. A drain was placed, brought out through a separate stab incision, and placed along the deltopectoral interval. The skin was closed with 2-0 Vicryl and a running 3-0 Monocryl. Steri-Strips were applied. Sterile dressing was then placed. The patient tolerated the procedure very well. There were no complications. She was taken from the operating room in stable condition. Eloy Cobb MD /[id number] MTDD
== END 2021-01-16 13:30 | disposition home health service (06) | DRG 483 ==
LOC: JP.SDS 05:33 → JP.MS 10:28 → JP.SDS 10:28 → JP.MS 10:36 → UNDOADMIN 01-15 17:06 → UNDODISIN 01-16 13:30
PROVIDERS: ADMIT Specialist; ATTEND Specialist
PROC: 0RRJ00Z Replacement of Right Shoulder Joint with Reverse Ball and Socket Synthetic Substitute, Open Approach (ICD-10-PCS; principal; 2021-01-14)
DX: M75.101 Unspecified rotator cuff tear or rupture of right shoulder, not specified as traumatic (principal); F32.9 Major depressive disorder, single episode, unspecified; F41.9 Anxiety disorder, unspecified; F17.200 Nicotine dependence, unspecified, uncomplicated; Z88.8 Allergy status to other drugs, medicaments and biological substances; Z88.1 Allergy status to other antibiotic agents; Z88.5 Allergy status to narcotic agent; Z88.6 Allergy status to analgesic agent
CPT/HCPCS: 36415; 73020-26-RT; 73020-RT; 80053; 85027; 86850; 86900; 86901; 94762; 97110-GP; 97162-GP; 97165-GO; 97530-GP; 97535-GO; 97535-GP; A9270-GY; C1713; C1776; J0330; J1100; J1170; J1885; J2250; J2405; J2704; J2710; J3010; J3490; J7030; J7120

== ENCOUNTER 2021-08-17 09:03 | Day surgery (SDC) | payer MEDICARE ==
[~2021-08-17 09:03] MED LIST: Bupivacaine 0.5% 30 ML SDV ONE; Midazolam 1 MG/ML 2 ML SDV ONE; Propofol 200 MG/20 ML SDV ONE; fentaNYL 100 MCG/2 ML SDV ONE
[2021-08-17] MEDS ORDERED: Lactated Ringers 1,000 ML IV SCH (09:30)
[2021-08-17] MEDS ORDERED: Nozin Nasal Sanitizer NASBOTH ONE (09:30)
[2021-08-17 10:05] LABS: CORONAVIRUS COVID-19 NAA NEGATIVE (NEGATIVE)
[2021-08-17] MEDS ORDERED: Bupivacaine 0.5% 30 ML SDV ONE (10:41)
[2021-08-17] MEDS ORDERED: Bupivacaine 0.5% 50 ML MDV ONE (11:33)
[2021-08-17] MEDS ORDERED: Midazolam 1 MG/ML 2 ML SDV ONE ×2 (12:08→13:15)
[2021-08-17] MEDS ORDERED: Propofol 200 MG/20 ML SDV ONE ×4 (12:18→13:43)
[2021-08-17] MEDS ORDERED: hydrALAZINE 20 MG/ML SDV ONE (12:53)
[2021-08-17] MEDS ORDERED: hydrOXYzine HCL 100 MG/2 ML SDV IM ONE (14:24)
[2021-08-17] MEDS ORDERED: fentaNYL 100 MCG/2 ML SDV IVPUSH ONE (14:24)
[2021-08-17] MEDS ORDERED: HYDROmorphone 2 MG Tab PO PRN (15:02)
[2021-08-17 15:34] VITALS: BP 123/80; PULSE 77
== END 2021-08-17 15:58 | disposition home or self-care (01) ==
LOC: JP.SDS 09:03
PROVIDERS: ATTEND Specialist
DX: M75.122 Complete rotator cuff tear or rupture of left shoulder, not specified as traumatic (principal); M25.812 Other specified joint disorders, left shoulder; M75.52 Bursitis of left shoulder; E03.9 Hypothyroidism, unspecified; G47.33 Obstructive sleep apnea (adult) (pediatric); Z01.812 Encounter for preprocedural laboratory examination; Z20.822 Contact with and (suspected) exposure to COVID-19; Z88.8 Allergy status to other drugs, medicaments and biological substances
CPT/HCPCS: 0241U; 36415; 80053; 85027; A9270-GY; C1713; J0360; J2250; J2704; J3010; J3370; J3410; J3490; J7050; J7120

== ENCOUNTER 2021-09-28 18:03 | Emergency (ER) | payer MEDICAID, MEDICARE ==
[2021-09-28] MEDS ORDERED: Glucose Gel 15 GM in 37.5 GM Tube PO ONE (18:29)
[2021-09-28 19:23] VITALS: BP 146/88; PULSE 90
[2021-09-28] MEDS ORDERED: Potassium Chloride 20 MEQ Tab.ER PO ONE (19:24)
== END 2021-09-28 20:33 | disposition home or self-care (01) ==
LOC: JP.ED 18:03
DX: R56.9 Unspecified convulsions (principal); E16.1 Other hypoglycemia; E87.6 Hypokalemia; R79.89 Other specified abnormal findings of blood chemistry; E83.52 Hypercalcemia; E03.9 Hypothyroidism, unspecified; F17.210 Nicotine dependence, cigarettes, uncomplicated; E66.9 Obesity, unspecified; Z88.8 Allergy status to other drugs, medicaments and biological substances; Z86.16 Personal history of COVID-19; Z88.5 Allergy status to narcotic agent; Z88.0 Allergy status to penicillin; Z91.048 Other nonmedicinal substance allergy status; Z88.1 Allergy status to other antibiotic agents; Z68.29 Body mass index [BMI] 29.0-29.9, adult
CPT/HCPCS: 36415; 80053; 82607; 82746; 83735; 84145; 85025; 86140; 93005; 93010; 99283; 99285; A9270

== ENCOUNTER 2022-05-17 07:05 | Day surgery (SDC) | payer MEDICARE ==
[2022-05-17] MEDS ORDERED: Lactated Ringers 1,000 ML IV SCH (07:30)
[2022-05-17] MEDS ORDERED: Nozin Nasal Sanitizer NASBOTH ONE (07:30)
[2022-05-17] MEDS ORDERED: fentaNYL 100 MCG/2 ML SDV ONE ×3 (07:36→10:42)
[2022-05-17] MEDS ORDERED: Propofol 200 MG/20 ML SDV ONE ×4 (07:37→11:17)
[2022-05-17] MEDS ORDERED: Midazolam 1 MG/ML 2 ML SDV ONE ×2 (07:37→09:49)
[2022-05-17] MEDS ORDERED: Bupivacaine 0.5% 30 ML SDV ONE (07:38)
[2022-05-17 07:48] LABS: ESTIMATED GFR 69 mL/min (>60)
[2022-05-17] MEDS ORDERED: ceFAZolin 2 GM in Sodium Chloride 0.9% 50 ML IV ONE (09:52)
[2022-05-17] MEDS ORDERED: ceFAZolin 1 GM Vial ONE (09:57)
[2022-05-17] MEDS ORDERED: Sodium Chloride 0.9% 10 ML ONE (09:57)
[2022-05-17] MEDS: Bupivacaine 0.5% 50 ML MDV ONE ×2 (10:29→11:30)
[2022-05-17] MEDS ORDERED: Lactated Ringers 1,000 ML ONE (11:11)
[2022-05-17] MEDS ORDERED: Morphine 2 MG/ML SYRINGE IVPUSH ONE (12:15)
[2022-05-17 13:09] VITALS: BP 121/75; PULSE 91
== END 2022-05-17 13:50 | disposition home or self-care (01) ==
LOC: JP.SDS 07:05
PROVIDERS: ATTEND Specialist
DX: S46.012A Strain of muscle(s) and tendon(s) of the rotator cuff of left shoulder, initial encounter (principal); G47.33 Obstructive sleep apnea (adult) (pediatric); F32.A Depression, unspecified; F11.20 Opioid dependence, uncomplicated; E03.9 Hypothyroidism, unspecified; Q79.60 Ehlers-Danlos syndrome, unspecified; K90.9 Intestinal malabsorption, unspecified; F17.200 Nicotine dependence, unspecified, uncomplicated; Z88.6 Allergy status to analgesic agent; Z98.890 Other specified postprocedural states; Z79.899 Other long term (current) drug therapy; Z88.5 Allergy status to narcotic agent; Z88.1 Allergy status to other antibiotic agents; Z88.8 Allergy status to other drugs, medicaments and biological substances; W19.XXXA Unspecified fall, initial encounter
CPT/HCPCS: 23410; 36415; 80053; 85027; A9270-GY; C1713; J0690; J2250; J2270; J2704; J3010; J3490; J7120

== ENCOUNTER 2022-10-10 08:04 | Emergency (ER) | payer MEDICARE ==
[2022-10-10 08:41] VITALS: BP 124/81; PULSE 76
[2022-10-10] MEDS ORDERED: Diphtheria,Pertussis(Acell),Tetanus Vaccine 0.5 ML Syringe IM ONE (08:50)
[2022-10-10 08:57] LABS: BASOPHILS ABSOLUTE AUTO 0.04 K/uL (0.00-0.10); BASOPHILS PERCENT AUTO 0.7 % (0.1-1.3); EOSINOPHILS ABSOLUTE AUTO 0.11 K/uL (0.00-0.40); EOSINOPHILS PERCENT AUTO 1.8 % (0.0-5.4); HEMATOCRIT 41.3 % (34.3-46.0); HEMOGLOBIN 13.6 g/dL (11.2-15.5); IMMATURE GRAN ABSOLUTE AUTO 0.03 K/uL (0.00-0.23); IMMATURE GRAN PERCENT AUTO 0.5 % (0.0-0.7); LYMPHOCYTES ABSOLUTE AUTO 2.09 K/uL (0.8-3.3); LYMPHOCYTES PERCENT AUTO 35.1 % (11.4-47.7); MEAN CORPUSCULAR HEMOGLOBIN 32.7 pg (31.6-35.5); MEAN CORPUSCULAR HGB CONC 32.9 g/dL (31.6-35.5); MEAN CORPUSCULAR VOLUME 99.3 fL (81.4-99.0); MONOCYTES ABSOLUTE AUTO 0.49 K/uL (0.20-0.90); MONOCYTES PERCENT AUTO 8.2 % (3.3-12.6); NEUTROPHILS ABSOLUTE AUTO 3.19 K/uL (1.0-7.6); NEUTROPHILS PERCENT AUTO 53.7 % (40.0-78.1); PLATELET COUNT,PLT 239 K/uL (130-375); RED BLOOD CELL COUNT 4.16 M/uL (3.77-5.24)
== END 2022-10-10 09:54 | disposition home or self-care (01) ==
LOC: JP.ED 08:04
DX: S61.052A Open bite of left thumb without damage to nail, initial encounter (principal); L08.9 Local infection of the skin and subcutaneous tissue, unspecified; Z23 Encounter for immunization; Z72.0 Tobacco use; W54.0XXA Bitten by dog, initial encounter
CPT/HCPCS: 36415; 85025; 86140; 90471; 90715; 99283-25

== ENCOUNTER 2023-04-13 11:35 | Day surgery (SDC) | payer MEDICARE, MEDICAID ==
[~2023-04-13 11:35] MED LIST changes: +Bupivacaine 0.5% 50 ML MDV ONE; +Dexamethasone 4 MG/ML SDV ONE; +Glycopyrrolate 0.2 MG/ML 5 ML MDV ONE; -Midazolam 1 MG/ML 2 ML SDV ONE; +Neostigmine Methylsulfate 10 MG/10 ML MDV ONE; +Ondansetron 4 MG/2 ML SDV ONE; +Rocuronium 50 MG/5 ML Vial ONE; +Succinylcholine 200 MG/10 ML MDV ONE; -fentaNYL 100 MCG/2 ML SDV ONE; +fentaNYL 250 MCG/5 ML SDV ONE
[2023-04-13] MEDS ORDERED: Bupivacaine 0.5% 30 ML SDV ONE (11:41)
[2023-04-13] MEDS ORDERED: Nozin Nasal Sanitizer NASBOTH ONE (12:00)
[2023-04-13] MEDS ORDERED: Lactated Ringers 1,000 ML IV SCH (12:00)
[2023-04-13] MEDS ORDERED: ceFAZolin 2 GM in Sodium Chloride 0.9% 50 ML IV ONE (12:30)
[2023-04-13 12:43] LABS: HEMATOCRIT 35.7 % (34.3-46.0); HEMOGLOBIN 11.8 g/dL (11.2-15.5); MEAN CORPUSCULAR HEMOGLOBIN 33.1 pg (31.6-35.5); MEAN CORPUSCULAR HGB CONC 33.1 g/dL (31.6-35.5); RED BLOOD CELL COUNT 3.57 M/uL (3.77-5.24); WHITE BLOOD CELL COUNT,WBC 3.7 K/uL (3.2-11.0)
[2023-04-13 13:05] LABS: A/G RATIO 1.1 (1.2-2.2); ALANINE AMINOTRANSFERASE,ALT 107 U/L (12-78); ALBUMIN 3.2 g/dL (3.4-5.0); ALKALINE PHOSPHATASE 159 U/L (46-116); ASPARTATE AMNIOTRANSFERASE,AST 77 U/L (15-37); BILIRUBIN TOTAL 0.3 mg/dL (0.2-1.0); BLOOD UREA NITROGEN,BUN 11 mg/dL (7-18); CALCIUM 9.6 mg/dL (8.5-10.1); CARBON DIOXIDE,CO2 34 mmol/L (21-32); CHLORIDE,CL 105 mmol/L (100-108); CREATININE 0.9 mg/dL (0.6-1.0); EST CRCL DRUG DOSING (CG) 67.89 mL/min; ESTIMATED GFR 77 mL/min (>60); GLUCOSE RANDOM 83 mg/dL (74-106); PROTEIN TOTAL,TP 6.2 g/dL (6.4-8.2); SODIUM,NA 142 mmol/L (140-148)
[2023-04-13] MEDS ORDERED: Midazolam 1 MG/ML 2 ML SDV ONE (13:56)
[2023-04-13] MEDS ORDERED: Lactated Ringers 1,000 ML ONE (15:25)
[2023-04-13] MEDS ORDERED: Acetaminophen/oxyCODONE 325-10 MG Tab PO PRN (17:19)
[2023-04-13 18:09] VITALS: BP 131/86; PULSE 71
== END 2023-04-13 18:00 | disposition home or self-care (01) ==
LOC: JP.SDS 11:35
PROVIDERS: ATTEND Specialist
DX: M75.102 Unspecified rotator cuff tear or rupture of left shoulder, not specified as traumatic (principal); F17.210 Nicotine dependence, cigarettes, uncomplicated; F43.10 Post-traumatic stress disorder, unspecified; F32.A Depression, unspecified; G47.30 Sleep apnea, unspecified; Z88.8 Allergy status to other drugs, medicaments and biological substances; Z88.5 Allergy status to narcotic agent; Z79.899 Other long term (current) drug therapy
CPT/HCPCS: 23420; 36415; 80053; 85027; A9270; C1713; J0330; J0690; J1100; J2250; J2405; J2704; J2710; J3010; J3490; J7120

== ENCOUNTER 2023-08-12 20:05 | Emergency (ER) | payer MEDICARE, MEDICAID ==
[2023-08-12 21:14] VITALS: BP 130/79; PULSE 84
[2023-08-12] MEDS: Ketorolac 30 MG/ML SDV IM ONE (23:00)
[2023-08-12] MEDS: traMADol 50 MG Tab PO ONE (23:03)
== END 2023-08-12 23:45 | disposition home health service (06) ==
LOC: JP.ED 20:05
DX: M75.102 Unspecified rotator cuff tear or rupture of left shoulder, not specified as traumatic (principal); I10 Essential (primary) hypertension; K21.9 Gastro-esophageal reflux disease without esophagitis; E03.9 Hypothyroidism, unspecified; E66.9 Obesity, unspecified; Z88.8 Allergy status to other drugs, medicaments and biological substances; Z91.048 Other nonmedicinal substance allergy status; Z88.5 Allergy status to narcotic agent; Z88.6 Allergy status to analgesic agent; Z88.1 Allergy status to other antibiotic agents; Z79.899 Other long term (current) drug therapy; Z86.19 Personal history of other infectious and parasitic diseases; Z68.31 Body mass index [BMI] 31.0-31.9, adult; Z47.31 Aftercare following explantation of shoulder joint prosthesis
CPT/HCPCS: 73030; 96372; 99283; J1885

== ENCOUNTER 2023-12-12 07:23 | Day surgery (SDC) | payer MEDICARE, MEDICAID ==
[2023-12-12] MEDS ORDERED: Bupivacaine 0.5% 50 ML MDV ONE (07:32)
[2023-12-12] MEDS ORDERED: Lidocaine 1% 2 ML ONE (07:42)
[2023-12-12] MEDS: Lactated Ringers 1,000 ML IV SCH (07:52)
[2023-12-12] MEDS ORDERED: Propofol 200 MG/20 ML SDV ONE (07:52)
[2023-12-12] MEDS ORDERED: fentaNYL 250 MCG/5 ML SDV ONE (07:52)
[2023-12-12] MEDS ORDERED: Neostigmine Methylsulfate 10 MG/10 ML MDV ONE (07:52)
[2023-12-12] MEDS ORDERED: Dexamethasone 4 MG/ML SDV ONE (07:52)
[2023-12-12] MEDS ORDERED: Midazolam 1 MG/ML 2 ML SDV ONE (07:52)
[2023-12-12] MEDS ORDERED: Succinylcholine 200 MG/10 ML MDV ONE (07:52)
[2023-12-12] MEDS ORDERED: Glycopyrrolate 0.2 MG/ML 5 ML MDV ONE (07:52)
[2023-12-12] MEDS ORDERED: Ondansetron 4 MG/2 ML SDV ONE (07:52)
[2023-12-12] MEDS ORDERED: Rocuronium 50 MG/5 ML Vial ONE (07:52)
[2023-12-12 07:54] LABS: HEMATOCRIT 37.4 % (34.3-46.0); HEMOGLOBIN 12.3 g/dL (11.2-15.5); MEAN CORPUSCULAR HGB CONC 32.9 g/dL (31.6-35.5); MEAN CORPUSCULAR VOLUME 100.3 fL (81.4-99.0); RED BLOOD CELL COUNT 3.73 M/uL (3.77-5.24); WHITE BLOOD CELL COUNT,WBC 4.5 K/uL (3.2-11.0)
[2023-12-12 08:15] LABS: ALANINE AMINOTRANSFERASE,ALT 44 U/L (12-78); ALBUMIN 3.6 g/dL (3.4-5.0); ALKALINE PHOSPHATASE 105 U/L (46-116); ASPARTATE AMNIOTRANSFERASE,AST 33 U/L (15-37); BILIRUBIN TOTAL 0.3 mg/dL (0.2-1.0); BLOOD UREA NITROGEN,BUN 16 mg/dL (7-18); CALCIUM 10.1 mg/dL (8.5-10.1); CARBON DIOXIDE,CO2 27 mmol/L (21-32); CHLORIDE,CL 106 mmol/L (100-108); ESTIMATED GFR 68 mL/min (>60); GLUCOSE RANDOM 77 mg/dL (74-106); POTASSIUM,K 4.3 mmol/L (3.6-5.2); PROTEIN TOTAL,TP 7.2 g/dL (6.4-8.2); SODIUM,NA 142 mmol/L (140-148)
[2023-12-12] MEDS: Nozin Nasal Sanitizer NASBOTH ONE (08:28)
[2023-12-12] MEDS: ceFAZolin 2 GM in Premix Bag 1 BAG IV ONE (09:08)
[2023-12-12] MEDS ORDERED: Bupivacaine 0.5% 30 ML SDV ONE ×2 (09:45→09:46)
[2023-12-12 13:03] VITALS: BP 121/87; PULSE 69
[2023-12-12] MEDS: oxyCODONE 5 MG Tab PO ONE (13:03)
== END 2023-12-12 13:50 | disposition home or self-care (01) ==
LOC: JP.SDS 07:23
PROVIDERS: ATTEND Specialist
DX: M79.5 Residual foreign body in soft tissue (principal); M79.89 Other specified soft tissue disorders; M25.312 Other instability, left shoulder; Z79.899 Other long term (current) drug therapy
CPT/HCPCS: 01630; 29819; 29822; 36415; 80053; 85027; A9270; C1713; J0330; J0665; J0690; J1100; J1596; J2250; J2405; J2704; J2710; J3010; J7120; J3490

== ENCOUNTER 2024-07-16 14:05 | Emergency (ER) | payer MEDICARE, MEDICAID ==
[2024-07-16 15:02] VITALS: BP 132/77; PULSE 74
== END 2024-07-16 15:00 | disposition left against medical advice (07) ==
LOC: JP.ED 14:05
DX: Z53.21 Procedure and treatment not carried out due to patient leaving prior to being seen by health care provider (principal)

== ENCOUNTER 2024-08-28 15:20 | Emergency (ER) | payer MEDICARE ==
[2024-08-28] MEDS ORDERED: Sodium Chloride 0.9% 10 ML Syringe FLUSH PRN (16:15)
[2024-08-28] MEDS: Sodium Chloride 0.9% 1,000 ML IV SCH (16:53)
[2024-08-28] MEDS: Furosemide 40 MG/4 ML VIAL IVPUSH ONE (17:20)
[2024-08-28 18:17] VITALS: BP 100/57; PULSE 65
== END 2024-08-28 18:31 | disposition home or self-care (01) ==
LOC: JP.ED 15:20
DX: E87.5 Hyperkalemia (principal); I10 Essential (primary) hypertension; K21.9 Gastro-esophageal reflux disease without esophagitis; E11.9 Type 2 diabetes mellitus without complications; E03.9 Hypothyroidism, unspecified; E66.9 Obesity, unspecified; Z90.49 Acquired absence of other specified parts of digestive tract; F17.200 Nicotine dependence, unspecified, uncomplicated; Z79.899 Other long term (current) drug therapy; Z79.82 Long term (current) use of aspirin; Z88.1 Allergy status to other antibiotic agents; Z88.8 Allergy status to other drugs, medicaments and biological substances; Z91.048 Other nonmedicinal substance allergy status; Z88.5 Allergy status to narcotic agent
CPT/HCPCS: 36415; 84132; 93005; 96361; 96374; 99285; J1938; J7030